=== PATIENT | female | born 1970 | race Hispanic/Latino ===

== ENCOUNTER 2017-06-05 17:33 | Emergency (ER) | payer SELFPAY ==
[~2017-06-05] VITALS: Ht 152.4 cm; Wt 61.4 kg
[~2017-06-05 17:33] MED LIST: ALPRAZOLAM0.25 MG OR; AMBIEN CR12.5 MG OR; AMBIEN10 MG OR; AMBIEN10 MG PO; AMBIEN5 MG PO; AMOX/K CLAV875 M1 PO; AMOXICILLIN500 MG OR; AMOXICILLIN500 MG PO; AMOXICILLIN875 MG OR; ANTIVERT OR; AUGMENTIN500TAB PO; AUGMENTIN875 MG OR; BACTRIM DS1 TAB OR; BACTRIM DS1 TAB PO; BACTROBAN2 % EX; BACTROBAN21 EX; BENTYL20 MG OR; CEPHALEXIN500 MG PO; CIPRO XR500 MG OR; CIPRO XR500 MG PO; CIPRO500 MG OR; CIPRODEX1 ML OT; CIPROFLOXACN500 MG PO; CYCLOBENZAPR10 MG OR; DIAZIDE OR; DOXYCYC MONO100 MG OR; ERY-TAB333 MG OR; FLEXERIL OR; FLONASE NASAL50 MCG; FLOXIN OTIC0.31 OT; GENTAK0.32 OS; GLIP/METFORM1 TA1 OR; IBUPROFEN800 MG PO; INVOKANA300 MG PO; KEFLEX500 MG PO; LANTUS100 MG/ML SC; LEVEMIR SC; LEVEMIR1000 UNITS SC; LEVOTHYROXIN50 MCG OR; LEXAPRO10 MG OR; LEXAPRO10 MG PO; LISINOPRIL2.5 MG PO; LORTAB 10 PO; LORTAB 5 OR; LORTAB5 PO; LOVASTATIN20 M1 PO; METFORMIN1000 MG PO; METOCLOPRAM10 MG OR; MUPIROCIN2 % EX; NAPROSYN500 MG OR; NAPROSYN500 MG PO; NOVOLIN 70/30 SC; NOVOLIN R SC; PERCOCET 5/325M1 TAB OR; PLAVIX75 MG OR; PREVACID30 M2 PO; ULTRAM50 M1 PO; ULTRAM50 MG OR; VICOPROFEN PO; XANAX0.25 MG OR; ZITHROMAX250 MG OR; ZOFRAN ODT4 MG OR; ZOFRAN ODT4 MG PO; ZYRTEC10 MG PO; [UNRECOGNIZED DRUG - REMARK]
[2017-06-05] MEDS ORDERED: BACTRIM DS1 TAB PO (18:00)
[2017-06-05 18:08] VITALS: BP 134/83
== END 2017-06-05 18:14 | disposition home or self-care (01) | DRG 158 ==
LOC: ED 17:33
DX: S01.531A Puncture wound without foreign body of lip, initial encounter (principal); K12.2 Cellulitis and abscess of mouth; R60.0 Localized edema

== ENCOUNTER 2017-06-07 17:58 | Emergency (ER) | payer SELFPAY ==
[~2017-06-07] VITALS: Ht 152.4 cm; Wt 51.0 kg
[2017-06-07 18:48] VITALS: BP 114/75
== END 2017-06-07 18:56 | disposition home or self-care (01) | DRG 138 ==
LOC: ED 17:58
PROC: 0C91XZZ Drainage of Lower Lip, External Approach (ICD-10-PCS; principal; 2017-06-07)
DX: K12.2 Cellulitis and abscess of mouth (principal)

== ENCOUNTER 2018-04-01 21:09 | Emergency (ER) | payer SELFPAY ==
[~2018-04-01] VITALS: Ht 152.4 cm; Wt 56.2 kg
[2018-04-01] MEDS ORDERED: CEPHALEXIN500 MG PO (22:00)
[2018-04-01] MEDS ORDERED: BACTRIM DS1 TAB PO (22:00)
[2018-04-01 22:14] VITALS: BP 115/75
== END 2018-04-01 22:15 | disposition home or self-care (01) | DRG 603 ==
LOC: ED 21:09
DX: L08.9 Local infection of the skin and subcutaneous tissue, unspecified (principal); E11.9 Type 2 diabetes mellitus without complications

== ENCOUNTER 2018-06-30 14:40 | Emergency (ER) | payer SELFPAY ==
[~2018-06-30] VITALS: Ht 152.4 cm; Wt 57.7 kg
[2018-06-30] MEDS ORDERED: CLINDAMYCIN300 M1 PO (14:59)
[2018-06-30 15:05] VITALS: BP 104/65
== END 2018-06-30 15:05 | disposition home or self-care (01) | DRG 603 ==
LOC: ED 14:40
DX: L03.213 Periorbital cellulitis (principal); H57.12 Ocular pain, left eye

== ENCOUNTER 2018-11-15 22:39 | Emergency (ER) | payer SELFPAY ==
[~2018-11-15] VITALS: Ht 152.4 cm; Wt 57.7 kg
[~2018-11-15 22:39] MED LIST changes: +CLINDAMYCIN300 M1 PO
[2018-11-15] MEDS ORDERED: BUSPIRONE5 MG PO (22:50)
[2018-11-15] MEDS ORDERED: DOXYCYCL HYC100 MG PO (23:07)
[2018-11-15 23:18] VITALS: BP 120/82
== END 2018-11-15 23:18 | disposition home or self-care (01) | DRG 761 ==
LOC: ED 22:39
DX: N90.7 Vulvar cyst (principal); E11.9 Type 2 diabetes mellitus without complications

== ENCOUNTER 2019-01-27 01:09 | Emergency (ER) | payer SELFPAY ==
[~2019-01-27] VITALS: Ht 152.4 cm; Wt 54.2 kg
[~2019-01-27 01:09] MED LIST changes: +BUSPIRONE5 MG PO; +DOXYCYCL HYC100 MG PO
[2019-01-27] MEDS ORDERED: PAXIL30 MG PO (01:20)
[2019-01-27] MEDS ORDERED: BACTROBAN21 EX (01:36)
[2019-01-27] MEDS ORDERED: VOLTAREN - GENE75 MG PO (01:36)
[2019-01-27 01:40] VITALS: BP 113/67
== END 2019-01-27 01:55 | disposition home or self-care (01) | DRG 607 ==
LOC: ED 01:09
DX: L98.8 Other specified disorders of the skin and subcutaneous tissue (principal)

== ENCOUNTER 2019-10-24 21:23 | Emergency (ER) | payer SELFPAY ==
[~2019-10-24] VITALS: Ht 152.4 cm; Wt 66.0 kg
[~2019-10-24 21:23] MED LIST changes: +PAXIL30 MG PO; +VOLTAREN - GENE75 MG PO
[2019-10-24] MEDS ORDERED: AUGMENTIN500TAB PO (22:33)
[2019-10-24] MEDS ORDERED: IBUPROFEN600 MG PO (22:33)
[2019-10-24 23:10] VITALS: BP 107/60
== END 2019-10-24 23:10 | disposition home or self-care (01) | DRG 603 ==
LOC: ED 21:23
DX: L02.811 Cutaneous abscess of head [any part, except face] (principal); E11.9 Type 2 diabetes mellitus without complications

== ENCOUNTER 2020-01-17 | Emergency (ER) | payer SELFPAY ==
[~2020-01-17] MED LIST changes: +IBUPROFEN600 MG PO
[2020-01-17] MEDS ORDERED: DOXYCYCL HYC100 MG PO (23:43)
[2020-05-05] MEDS ORDERED: BLOOD PRESSURE (10:01)
[2020-05-05] MEDS ORDERED: PRAVASTATIN PO (10:01)
== END 2020-01-18 00:37 | disposition home or self-care (01) | DRG 607 ==
DX: L73.2 Hidradenitis suppurativa (principal); H00.015 Hordeolum externum left lower eyelid; E11.9 Type 2 diabetes mellitus without complications; Z79.4 Long term (current) use of insulin

== ENCOUNTER 2021-09-14 07:11 | Emergency (ER) | payer SELFPAY ==
[~2021-09-14] VITALS: Ht 152.4 cm; Wt 56.8 kg
[~2021-09-14 07:11] MED LIST changes: +BLOOD PRESSURE; +PRAVASTATIN PO
[2021-09-14 08:00] LABS: URINE BILIRUBIN - DIPSTICK NEGATIVE (NEGATIVE); URINE BLOOD DIPSTICK SMALL (NEGATIVE); URINE COLOR YELLOW; URINE GLUCOSE - DIPSTICK >=1000 mg/dL (NEGATIVE); URINE KETONE TRACE mg/dL (NEGATIVE); URINE LEUK ESTERASE NEGATIVE (NEGATIVE); URINE PH 7.5 (4.5-8.0); URINE PROTEIN - DIPSTICK 100 mg/dL (NEG-TRACE); URINE UROBILINOGEN - DIPSTICK 0.2 E.U./dL (0.2)
[2021-09-14 08:02] LABS: HEMATOCRIT 39.2 % (37.0-47.0); HEMOGLOBIN 13.2 g/dl (12.0-16.0); IMMATURE GRANULOCYTES 0.7 % (0.0-5.0); MEAN CELL VOLUME 89.9 fL CALC (80.0-100.0); MEAN CORPUSCULAR HGB 30.3 pG CALC (26.0-32.0); MEAN CORPUSCULAR HGB CONC 33.7 g/dL CAL (32.0-36.0); NEUT# 6.82 thou/uL (2.00-7.15); RED BLOOD COUNT 4.36 mill/uL (4.20-5.60); RED CELL DISTRI WIDTH 12.8 % (11.5-15.5)
[2021-09-14 08:04] LABS: URINE NITRITE - DIPSTICK NEGATIVE (Negative)
[2021-09-14 08:10] LABS: URINE SQUAMOUS EPITHELIAL CELL FEW EPI/hpf (0-FEW); URINE WBC >100 WBC/hpf (0-5)
[2021-09-14 08:11] LABS: URINE BACTERIA FEW hpf; URINE RBC 0-2 RBC/hpf (0-5)
[2021-09-14 08:16] LABS: ALBUMIN 3.8 g/dL (3.2-5.0); AMYLASE 56 u/l (30-110); BILIRUBIN, TOTAL 0.7 mg/dL (0.0-1.4); BUN 17 mg/dL (7-17); BUN/CREATININE RATIO 20 (12-20 (CALC)); CREATININE 0.9 mg/dL (0.5-1.0); GFR > 60 ML/MIN (>=60 (CALC)); GFR FOR AFR.AMER. > 60 ML/MIN (>=60 (CALC)); LIPASE 27 u/l (23-300); POTASSIUM 3.9 mmol/l (3.5-5.1); SGOT/AST 20 u/l (14-36); SODIUM 135 mmol/l (137-146); TOTAL PROTEIN 7.7 g/dL (6.3-8.2)
[2021-09-14 08:33] LABS: ALKALINE PHOSPHATASE 103 u/l (38-126); ANION GAP 17 (6-22 (CALC)); CARBON DIOXIDE 39 mmol/l (22-30); CHLORIDE 83 mmol/l (95-108)
[2021-09-14] MEDS ORDERED: KEFLEX500 MG PO (09:40)
[2021-09-14] MEDS ORDERED: NAPROXEN500 MG PO (09:43)
[2021-09-14] MEDS ORDERED: ONDANSETRON4 MG PO (09:43)
[2021-09-14 10:32] VITALS: BP 109/74
== END 2021-09-14 10:31 | disposition home or self-care (01) | DRG 445 ==
LOC: ED 07:11
PROVIDERS: Emergency Medicine
DX: K80.20 Calculus of gallbladder without cholecystitis without obstruction (principal); N39.0 Urinary tract infection, site not specified; I10 Essential (primary) hypertension; E11.9 Type 2 diabetes mellitus without complications; B96.89 Other specified bacterial agents as the cause of diseases classified elsewhere; Z79.84 Long term (current) use of oral hypoglycemic drugs; Z79.4 Long term (current) use of insulin; Z87.442 Personal history of urinary calculi; Z20.822 Contact with and (suspected) exposure to COVID-19
CPT/HCPCS: Q9967

== ENCOUNTER 2021-10-02 16:08 | Emergency (ER) | payer SELFPAY ==
[~2021-10-02] VITALS: Ht 152.4 cm; Wt 48.0 kg
[~2021-10-02 16:08] MED LIST changes: +NAPROXEN500 MG PO; +ONDANSETRON4 MG PO
[2021-10-02 18:06] LABS: HEMATOCRIT 38.3 % (37.0-47.0); HEMOGLOBIN 13.4 g/dl (12.0-16.0); IMMATURE GRANULOCYTES 0.3 % (0.0-5.0); MEAN CELL VOLUME 88.2 fL CALC (80.0-100.0); MEAN CORPUSCULAR HGB 30.9 pG CALC (26.0-32.0); NEUT# 4.21 thou/uL (2.00-7.15); RED BLOOD COUNT 4.34 mill/uL (4.20-5.60)
[2021-10-02 18:16] LABS: ALBUMIN 3.6 g/dL (3.2-5.0); ALKALINE PHOSPHATASE 120 u/l (38-126); ANION GAP 8 (6-22 (CALC)); BILIRUBIN, TOTAL 0.6 mg/dL (0.0-1.4); BUN 11 mg/dL (7-17); BUN/CREATININE RATIO 18 (12-20 (CALC)); CARBON DIOXIDE 36 mmol/l (22-30); CHLORIDE 88 mmol/l (95-108); CREATININE 0.6 mg/dL (0.5-1.0); GFR > 60 ML/MIN (>=60 (CALC)); GFR FOR AFR.AMER. > 60 ML/MIN (>=60 (CALC)); POTASSIUM 3.4 mmol/l (3.5-5.1); SGOT/AST 18 u/l (14-36); SODIUM 130 mmol/l (137-146); TOTAL PROTEIN 7.2 g/dL (6.3-8.2)
[2021-10-02] MEDS ORDERED: VOLTAREN75 MG PO (21:26)
[2021-10-02 21:30] VITALS: BP 128/65
== END 2021-10-02 21:30 | disposition home or self-care (01) | DRG 552 ==
LOC: ED 16:08
PROVIDERS: Family Medicine
DX: M54.50 Low back pain, unspecified (principal); R55 Syncope and collapse; E07.9 Disorder of thyroid, unspecified; I10 Essential (primary) hypertension; E11.9 Type 2 diabetes mellitus without complications; Z79.84 Long term (current) use of oral hypoglycemic drugs; Z79.4 Long term (current) use of insulin
CPT/HCPCS: Q9967

== ENCOUNTER 2021-10-17 16:47 | Inpatient (IN) | payer SELFPAY ==
[~2021-10-17] VITALS: Ht 152.4 cm; Wt 62.0 kg
[~2021-10-17 16:47] MED LIST changes: +VOLTAREN75 MG PO
[2021-10-17 17:33] LABS: IMMATURE GRANULOCYTES 0.4 % (0.0-5.0); MEAN CELL VOLUME 85.6 fL CALC (80.0-100.0); MEAN CORPUSCULAR HGB 30.3 pG CALC (26.0-32.0); MEAN CORPUSCULAR HGB CONC 35.4 g/dL CAL (32.0-36.0); NEUT# 19.39 thou/uL (2.00-7.15); RED BLOOD COUNT 5.41 mill/uL (4.20-5.60); RED CELL DISTRI WIDTH 12.9 % (11.5-15.5)
[2021-10-17 17:34] LABS: HEMATOCRIT 46.3 % (37.0-47.0); HEMOGLOBIN 16.4 g/dl (12.0-16.0)
[2021-10-17 17:45] LABS: ALKALINE PHOSPHATASE 125 u/l (38-126); ANION GAP 24 (6-22 (CALC)); CARBON DIOXIDE 31 mmol/l (22-30); CHLORIDE 84 mmol/l (95-108); GFR 59 ML/MIN (>=60 (CALC)); GFR FOR AFR.AMER. > 60 ML/MIN (>=60 (CALC)); LIPASE 14 u/l (23-300); POTASSIUM 3.4 mmol/l (3.5-5.1); SODIUM 136 mmol/l (137-146)
[2021-10-17 17:53] LABS: ALBUMIN 4.5 g/dL (3.2-5.0); BILIRUBIN, TOTAL 1.3 mg/dL (0.0-1.4); BUN 39 mg/dL (7-17); BUN/CREATININE RATIO 39 (12-20 (CALC)); SGOT/AST 38 u/l (14-36)
[2021-10-17 22:00] VITALS: BP 95/72
[2021-10-17 23:00] VITALS: BP 94/63
[2021-10-18] VITALS (20 sets, daily range): BP systolic 61–151; BP diastolic 45–86
[2021-10-18 00:41] LABS: ANION GAP 10 (6-22 (CALC)); BUN 33 mg/dL (7-17); BUN/CREATININE RATIO 41 (12-20 (CALC)); CARBON DIOXIDE 33 mmol/l (22-30); CHLORIDE 98 mmol/l (95-108); CREATININE 0.8 mg/dL (0.5-1.0); GFR > 60 ML/MIN (>=60 (CALC)); GFR FOR AFR.AMER. > 60 ML/MIN (>=60 (CALC)); POTASSIUM 3.9 mmol/l (3.5-5.1); SODIUM 137 mmol/l (137-146)
[2021-10-18 04:32] LABS: ANION GAP 9 (6-22 (CALC)); BUN 32 mg/dL (7-17); BUN/CREATININE RATIO 46 (12-20 (CALC)); CARBON DIOXIDE 30 mmol/l (22-30); CHLORIDE 101 mmol/l (95-108); CREATININE 0.7 mg/dL (0.5-1.0); GFR > 60 ML/MIN (>=60 (CALC)); GFR FOR AFR.AMER. > 60 ML/MIN (>=60 (CALC)); POTASSIUM 3.2 mmol/l (3.5-5.1); SODIUM 137 mmol/l (137-146)
[2021-10-18 09:27] LABS: ANION GAP 7 (6-22 (CALC)); BUN 29 mg/dL (7-17); BUN/CREATININE RATIO 39 (12-20 (CALC)); CARBON DIOXIDE 31 mmol/l (22-30); CHLORIDE 104 mmol/l (95-108); CREATININE 0.7 mg/dL (0.5-1.0); GFR > 60 ML/MIN (>=60 (CALC)); GFR FOR AFR.AMER. > 60 ML/MIN (>=60 (CALC)); SODIUM 138 mmol/l (137-146)
[2021-10-18 14:37] LABS: IMMATURE GRANULOCYTES 0.1 % (0.0-5.0); MEAN CORPUSCULAR HGB 30.5 pG CALC (26.0-32.0); MEAN CORPUSCULAR HGB CONC 34.3 g/dL CAL (32.0-36.0); NEUT# 10.67 thou/uL (2.00-7.15); RED BLOOD COUNT 3.83 mill/uL (4.20-5.60); RED CELL DISTRI WIDTH 13.9 % (11.5-15.5)
[2021-10-18 14:39] LABS: HEMATOCRIT 34.1 % (37.0-47.0); HEMOGLOBIN 11.7 g/dl (12.0-16.0)
[2021-10-18] MEDS ORDERED: PRAVASTATIN10 MG PO (16:43)
[2021-10-19] VITALS: BP 124/86
[2021-10-19 00:26] LABS: URINE BILIRUBIN - DIPSTICK NEGATIVE (NEGATIVE); URINE BLOOD DIPSTICK SMALL (NEGATIVE); URINE COLOR YELLOW; URINE GLUCOSE - DIPSTICK >=1000 mg/dL (NEGATIVE); URINE KETONE 15 mg/dL (NEGATIVE); URINE PROTEIN - DIPSTICK TRACE mg/dL (NEG-TRACE); URINE SPECIFIC GRAVITY 1.015; URINE UROBILINOGEN - DIPSTICK 0.2 E.U./dL (0.2)
[2021-10-19 00:34] LABS: URINE LEUK ESTERASE SMALL (NEGATIVE); URINE NITRITE - DIPSTICK NEGATIVE (Negative)
[2021-10-19 00:54] LABS: URINE BACTERIA FEW hpf; URINE SQUAMOUS EPITHELIAL CELL FEW EPI/hpf (0-FEW); URINE WBC 50-100 WBC/hpf (0-5)
[2021-10-19 04:00] VITALS: BP 129/84
[2021-10-19 10:33] VITALS: BP 104/63
[2021-10-19 12:21] LABS: ANION GAP 4 (6-22 (CALC)); BUN 14 mg/dL (7-17); BUN/CREATININE RATIO 31 (12-20 (CALC)); CARBON DIOXIDE 31 mmol/l (22-30); CHLORIDE 106 mmol/l (95-108); CREATININE 0.5 mg/dL (0.5-1.0); GFR > 60 ML/MIN (>=60 (CALC)); GFR FOR AFR.AMER. > 60 ML/MIN (>=60 (CALC)); POTASSIUM 3.1 mmol/l (3.5-5.1); SODIUM 138 mmol/l (137-146)
[2021-10-19 14:21] VITALS: BP 112/62
[2021-10-19 19:53] VITALS: BP 118/68
[2021-10-20] VITALS (11 sets, daily range): BP systolic 107–140; BP diastolic 64–81
[2021-10-20 06:07] LABS: HEMATOCRIT 34.6 % (37.0-47.0); HEMOGLOBIN 11.6 g/dl (12.0-16.0); IMMATURE GRANULOCYTES 0.3 % (0.0-5.0); MEAN CELL VOLUME 90.3 fL CALC (80.0-100.0); MEAN CORPUSCULAR HGB 30.3 pG CALC (26.0-32.0); MEAN CORPUSCULAR HGB CONC 33.5 g/dL CAL (32.0-36.0); NEUT# 2.78 thou/uL (2.00-7.15); RED BLOOD COUNT 3.83 mill/uL (4.20-5.60); RED CELL DISTRI WIDTH 13.4 % (11.5-15.5)
[2021-10-20 06:26] LABS: ALKALINE PHOSPHATASE 112 u/l (38-126); ANION GAP 9 (6-22 (CALC)); BUN 8 mg/dL (7-17); BUN/CREATININE RATIO 15 (12-20 (CALC)); CARBON DIOXIDE 25 mmol/l (22-30); CHLORIDE 109 mmol/l (95-108); CREATININE 0.5 mg/dL (0.5-1.0); GFR > 60 ML/MIN (>=60 (CALC)); GFR FOR AFR.AMER. > 60 ML/MIN (>=60 (CALC)); POTASSIUM 3.5 mmol/l (3.5-5.1); SGOT/AST 33 u/l (14-36); SODIUM 140 mmol/l (137-146)
[2021-10-20 06:32] LABS: ALBUMIN 2.5 g/dL (3.2-5.0); BILIRUBIN, TOTAL 0.6 mg/dL (0.0-1.4); TOTAL PROTEIN 5.3 g/dL (6.3-8.2)
[2021-10-20 10:30] LABS: HEMATOCRIT 34.3 % (37.0-47.0); HEMOGLOBIN 11.4 g/dl (12.0-16.0)
[2021-10-21] VITALS: BP 149/87
[2021-10-21 04:00] VITALS: BP 140/73
[2021-10-21 05:31] LABS: HEMATOCRIT 36.2 % (37.0-47.0); HEMOGLOBIN 12.3 g/dl (12.0-16.0); IMMATURE GRANULOCYTES 0.1 % (0.0-5.0); MEAN CELL VOLUME 89.2 fL CALC (80.0-100.0); MEAN CORPUSCULAR HGB 30.3 pG CALC (26.0-32.0); NEUT# 4.96 thou/uL (2.00-7.15); RED BLOOD COUNT 4.06 mill/uL (4.20-5.60); RED CELL DISTRI WIDTH 13.4 % (11.5-15.5)
[2021-10-21 05:51] LABS: ALBUMIN 2.4 g/dL (3.2-5.0); BILIRUBIN, TOTAL 0.8 mg/dL (0.0-1.4); TOTAL PROTEIN 5.1 g/dL (6.3-8.2)
[2021-10-21 08:00] VITALS: BP 125/71
[2021-10-21] MEDS ORDERED: PERCOCET 5/325M1 TAB PO ×2 (08:50→08:51)
[2021-10-21 10:37] VITALS: BP 147/78
[2021-10-21 12:14] LABS: ANION GAP 11 (6-22 (CALC)); BUN 5 mg/dL (7-17); BUN/CREATININE RATIO 10 (12-20 (CALC)); CARBON DIOXIDE 23 mmol/l (22-30); CHLORIDE 104 mmol/l (95-108); CREATININE 0.5 mg/dL (0.5-1.0); GFR > 60 ML/MIN (>=60 (CALC)); GFR FOR AFR.AMER. > 60 ML/MIN (>=60 (CALC)); POTASSIUM 3.3 mmol/l (3.5-5.1); SODIUM 135 mmol/l (137-146)
== END 2021-10-21 14:26 | disposition home or self-care (01) | DRG 417 ==
LOC: ED 16:47 → ED-I 17:29 → ED 17:29 → ED-I 18:41 → ED 20:12 → MS2 20:13 → ICU 20:13 → MS2 10-18 18:12
PROVIDERS: Family Medicine; Nurse Practitioner; Surgery; ADMIT Hospitalist; ATTEND Hospitalist
PROC: 0FT44ZZ Resection of Gallbladder, Percutaneous Endoscopic Approach (ICD-10-PCS; principal; 2021-10-20)
PROC: BF001ZZ Plain Radiography of Bile Ducts using Low Osmolar Contrast (ICD-10-PCS; 2021-10-20)
DX: K80.00 Calculus of gallbladder with acute cholecystitis without obstruction (principal); E11.10 Type 2 diabetes mellitus with ketoacidosis without coma; E87.6 Hypokalemia; I10 Essential (primary) hypertension; E78.5 Hyperlipidemia, unspecified; Z79.4 Long term (current) use of insulin; Z79.84 Long term (current) use of oral hypoglycemic drugs; Z20.822 Contact with and (suspected) exposure to COVID-19
CPT/HCPCS: J0131; J1610; Q9967

== ENCOUNTER 2021-10-27 20:29 | Emergency (ER) | payer SELFPAY ==
[~2021-10-27] VITALS: Ht 152.4 cm; Wt 59.1 kg
[~2021-10-27 20:29] MED LIST changes: +PERCOCET 5/325M1 TAB PO; +PRAVASTATIN10 MG PO
[2021-10-27 23:03] LABS: HEMATOCRIT 40.5 % (37.0-47.0); HEMOGLOBIN 13.6 g/dl (12.0-16.0); IMMATURE GRANULOCYTES 0.5 % (0.0-5.0); MEAN CELL VOLUME 90.4 fL CALC (80.0-100.0); MEAN CORPUSCULAR HGB 30.4 pG CALC (26.0-32.0); MEAN CORPUSCULAR HGB CONC 33.6 g/dL CAL (32.0-36.0); NEUT# 9.23 thou/uL (2.00-7.15); RED BLOOD COUNT 4.48 mill/uL (4.20-5.60); RED CELL DISTRI WIDTH 13.4 % (11.5-15.5)
[2021-10-27 23:25] LABS: ALKALINE PHOSPHATASE 125 u/l (38-126); AMYLASE 74 u/l (30-110); BILIRUBIN, TOTAL 0.7 mg/dL (0.0-1.4); BUN 13 mg/dL (7-17); BUN/CREATININE RATIO 18 (12-20 (CALC)); CHLORIDE 96 mmol/l (95-108); CREATININE 0.7 mg/dL (0.5-1.0); GFR > 60 ML/MIN (>=60 (CALC)); GFR FOR AFR.AMER. > 60 ML/MIN (>=60 (CALC)); LIPASE 34 u/l (23-300); SODIUM 136 mmol/l (137-146)
[2021-10-27 23:28] LABS: URINE BILIRUBIN - DIPSTICK NEGATIVE (NEGATIVE); URINE BLOOD DIPSTICK SMALL (NEGATIVE); URINE COLOR YELLOW; URINE GLUCOSE - DIPSTICK >=1000 mg/dL (NEGATIVE); URINE KETONE NEGATIVE (NEGATIVE); URINE LEUK ESTERASE TRACE (NEGATIVE); URINE PROTEIN - DIPSTICK 100 mg/dL (NEG-TRACE); URINE SPECIFIC GRAVITY 1.015
[2021-10-27 23:31] LABS: ALBUMIN 3.6 g/dL (3.2-5.0); ANION GAP 10 (6-22 (CALC)); CARBON DIOXIDE 35 mmol/l (22-30); POTASSIUM 4.8 mmol/l (3.5-5.1); SGOT/AST 21 u/l (14-36); TOTAL PROTEIN 7.2 g/dL (6.3-8.2)
[2021-10-27 23:35] LABS: URINE BACTERIA MANY hpf; URINE NITRITE - DIPSTICK POSITIVE (Negative); URINE SQUAMOUS EPITHELIAL CELL FEW EPI/hpf (0-FEW); URINE WBC 50-100 WBC/hpf (0-5)
[2021-10-27 23:36] LABS: URINE MUCUS FEW hpf (NONE-FEW)
[2021-10-28] MEDS ORDERED: TORADOL PO (00:13)
[2021-10-28] MEDS ORDERED: PROMETHAZINE HY25 M1 PO (00:13)
[2021-10-28 01:00] VITALS: BP 110/65
== END 2021-10-28 01:00 | disposition home or self-care (01) | DRG 392 ==
LOC: ED 20:29
PROVIDERS: Family Medicine
DX: R10.11 Right upper quadrant pain (principal); R10.13 Epigastric pain; R11.2 Nausea with vomiting, unspecified; E11.9 Type 2 diabetes mellitus without complications; I10 Essential (primary) hypertension; Z79.84 Long term (current) use of oral hypoglycemic drugs; Z90.49 Acquired absence of other specified parts of digestive tract; R82.71 Bacteriuria
CPT/HCPCS: Q9967

== ENCOUNTER 2021-11-18 18:57 | Emergency (ER) | payer OTHER ==
[~2021-11-18] VITALS: Ht 152.4 cm; Wt 46.4 kg
[~2021-11-18 18:57] MED LIST changes: +PROMETHAZINE HY25 M1 PO; +TORADOL PO
[2021-11-18 23:15] LABS: HEMATOCRIT 33.6 % (37.0-47.0); HEMOGLOBIN 11.4 g/dl (12.0-16.0); IMMATURE GRANULOCYTES 0.2 % (0.0-5.0); MEAN CELL VOLUME 89.1 fL CALC (80.0-100.0); MEAN CORPUSCULAR HGB 30.2 pG CALC (26.0-32.0); MEAN CORPUSCULAR HGB CONC 33.9 g/dL CAL (32.0-36.0); NEUT# 5.48 thou/uL (2.00-7.15); RED BLOOD COUNT 3.77 mill/uL (4.20-5.60); RED CELL DISTRI WIDTH 13.8 % (11.5-15.5)
[2021-11-18 23:39] LABS: ALBUMIN 2.9 g/dL (3.2-5.0); ALKALINE PHOSPHATASE 75 u/l (38-126); AMYLASE 51 u/l (30-110); BILIRUBIN, TOTAL 0.5 mg/dL (0.0-1.4); BUN 23 mg/dL (7-17); BUN/CREATININE RATIO 34 (12-20 (CALC)); CARBON DIOXIDE 33 mmol/l (22-30); CHLORIDE 98 mmol/l (95-108); CREATININE 0.7 mg/dL (0.5-1.0); GFR > 60 ML/MIN (>=60 (CALC)); GFR FOR AFR.AMER. > 60 ML/MIN (>=60 (CALC)); LIPASE 27 u/l (23-300); SGOT/AST 21 u/l (14-36); SODIUM 135 mmol/l (137-146)
[2021-11-18 23:42] LABS: ANION GAP 7 (6-22 (CALC)); POTASSIUM 3.4 mmol/l (3.5-5.1)
[2021-11-19] MEDS ORDERED: ZOFRAN4 MG/TAB PO (05:29)
[2021-11-19] MEDS ORDERED: VISTARIL 50MG C50 M1 PO (05:29)
[2021-11-19] MEDS ORDERED: TORADOL PO (05:29)
[2021-11-19 05:40] VITALS: BP 118/75
== END 2021-11-19 05:40 | disposition home or self-care (01) | DRG 392 ==
LOC: ED 18:57
PROVIDERS: Emergency Medicine
DX: R10.84 Generalized abdominal pain (principal); N83.201 Unspecified ovarian cyst, right side; I10 Essential (primary) hypertension; E11.9 Type 2 diabetes mellitus without complications; Z79.84 Long term (current) use of oral hypoglycemic drugs; Z90.49 Acquired absence of other specified parts of digestive tract
CPT/HCPCS: Q9967

== ENCOUNTER 2022-01-06 17:49 | Emergency (ER) | payer OTHER ==
[~2022-01-06 17:49] MED LIST changes: +VISTARIL 50MG C50 M1 PO; +ZOFRAN4 MG/TAB PO
== END 2022-01-06 18:50 | disposition left against medical advice (07) | DRG 951 ==
LOC: ED 17:49 → LWOBS 18:50
DX: Z53.21 Procedure and treatment not carried out due to patient leaving prior to being seen by health care provider (principal)

== ENCOUNTER 2022-02-24 19:46 | Emergency (ER) | payer OTHER ==
[~2022-02-24] VITALS: Ht 152.4 cm; Wt 49.0 kg
[2022-02-24] VITALS (7 sets, daily range): BP systolic 92–177; BP diastolic 64–103
[~2022-02-24 19:46] MED LIST changes: +ALPRAZOLAM PO; +CHOLESTYRAM PO; +CHOLESTYRAMINE4 G1 PO; +LANTUS; +LOVASTATIN
[2022-02-24] MEDS ORDERED: BACLOFEN10 MG PO (20:24)
[2022-02-24] MEDS ORDERED: HYDROCHLOROT25 MG PO (20:25)
[2022-02-24] MEDS ORDERED: PAROXETINE20 MG PO (20:26)
[2022-02-24] MEDS ORDERED: PROMETHAZINE25 M1 RE (20:27)
[2022-02-24] MEDS ORDERED: PREGABALIN50 MG PO (20:27)
[2022-02-24 20:48] LABS: IMMATURE GRANULOCYTES 0.7 % (0.0-5.0); MEAN CORPUSCULAR HGB 30.1 pG CALC (26.0-32.0); MEAN CORPUSCULAR HGB CONC 33.8 g/dL CAL (32.0-36.0); NEUT# 5.06 thou/uL (2.00-7.15); RED BLOOD COUNT 4.62 mill/uL (4.20-5.60); RED CELL DISTRI WIDTH 13.4 % (11.5-15.5)
[2022-02-24 20:49] LABS: HEMATOCRIT 41.1 % (37.0-47.0); HEMOGLOBIN 13.9 g/dl (12.0-16.0)
[2022-02-24 21:06] LABS: ALKALINE PHOSPHATASE 104 u/l (38-126); AMYLASE 63 u/l (30-110); BILIRUBIN, TOTAL 0.7 mg/dL (0.0-1.4); BUN 20 mg/dL (7-17); BUN/CREATININE RATIO 30 (12-20 (CALC)); CHLORIDE 97 mmol/l (95-108); CREATININE 0.7 mg/dL (0.5-1.0); GFR > 60 ML/MIN (>=60 (CALC)); GFR FOR AFR.AMER. > 60 ML/MIN (>=60 (CALC)); LIPASE 84 u/l (23-300); SGOT/AST 18 u/l (14-36); SODIUM 132 mmol/l (137-146)
[2022-02-24 21:08] LABS: ALBUMIN 3.6 g/dL (3.2-5.0); ANION GAP 13 (6-22 (CALC)); CARBON DIOXIDE 26 mmol/l (22-30)
[2022-02-25] MEDS ORDERED: ONDANSETRON4 MG PO (00:56)
[2022-02-25] MEDS ORDERED: MIRALAX17 GM PO (00:56)
[2022-02-25 01:19] VITALS: BP 92/64
== END 2022-02-25 01:22 | disposition home or self-care (01) | DRG 392 ==
LOC: ED 19:46
PROVIDERS: Emergency Medicine
DX: R11.10 Vomiting, unspecified (principal); K59.00 Constipation, unspecified; E11.9 Type 2 diabetes mellitus without complications; I10 Essential (primary) hypertension; Z90.49 Acquired absence of other specified parts of digestive tract; Z79.84 Long term (current) use of oral hypoglycemic drugs; Z79.4 Long term (current) use of insulin; Z96.89 Presence of other specified functional implants
CPT/HCPCS: Q9967; S0164

== ENCOUNTER 2022-03-02 22:47 | Emergency (ER) | payer OTHER ==
[~2022-03-02] VITALS: Ht 152.4 cm; Wt 47.0 kg
[~2022-03-02 22:47] MED LIST changes: +BACLOFEN10 MG PO; +HYDROCHLOROT25 MG PO; +MIRALAX17 GM PO; +PAROXETINE20 MG PO; +PREGABALIN50 MG PO; +PROMETHAZINE25 M1 RE
[2022-03-02 23:07] VITALS: BP 141/94
[2022-03-02 23:30] VITALS: BP 153/97
[2022-03-02 23:34] LABS: HEMATOCRIT 46.1 % (37.0-47.0); HEMOGLOBIN 15.8 g/dl (12.0-16.0); IMMATURE GRANULOCYTES 0.5 % (0.0-5.0); MEAN CELL VOLUME 88.5 fL CALC (80.0-100.0); MEAN CORPUSCULAR HGB 30.3 pG CALC (26.0-32.0); MEAN CORPUSCULAR HGB CONC 34.3 g/dL CAL (32.0-36.0); NEUT# 4.78 thou/uL (2.00-7.15); RED BLOOD COUNT 5.21 mill/uL (4.20-5.60); RED CELL DISTRI WIDTH 12.9 % (11.5-15.5)
[2022-03-02 23:52] LABS: ALBUMIN 4.3 g/dL (3.2-5.0); ALKALINE PHOSPHATASE 151 u/l (38-126); AMYLASE 87 u/l (30-110); BILIRUBIN, TOTAL 0.7 mg/dL (0.0-1.4); BUN 15 mg/dL (7-17); BUN/CREATININE RATIO 23 (12-20 (CALC)); CHLORIDE 97 mmol/l (95-108); CREATININE 0.6 mg/dL (0.5-1.0); GFR > 60 ML/MIN (>=60 (CALC)); GFR FOR AFR.AMER. > 60 ML/MIN (>=60 (CALC)); LIPASE 54 u/l (23-300); POTASSIUM 3.8 mmol/l (3.5-5.1)
[2022-03-02 23:58] LABS: ANION GAP 11 (6-22 (CALC)); CARBON DIOXIDE 37 mmol/l (22-30); SGOT/AST 39 u/l (14-36); SODIUM 141 mmol/l (137-146); TOTAL PROTEIN 8.7 g/dL (6.3-8.2)
[2022-03-03 00:30] VITALS: BP 148/92
[2022-03-03 01:00] VITALS: BP 153/96
[2022-03-03 01:13] LABS: URINE BILIRUBIN - DIPSTICK NEGATIVE (NEGATIVE); URINE BLOOD DIPSTICK SMALL (NEGATIVE); URINE COLOR YELLOW; URINE GLUCOSE - DIPSTICK >=1000 mg/dL (NEGATIVE); URINE KETONE NEGATIVE (NEGATIVE); URINE LEUK ESTERASE SMALL (NEGATIVE); URINE NITRITE - DIPSTICK NEGATIVE (Negative); URINE PROTEIN - DIPSTICK 100 mg/dL (NEG-TRACE); URINE SPECIFIC GRAVITY 1.015; URINE UROBILINOGEN - DIPSTICK 0.2 E.U./dL (0.2)
[2022-03-03 01:16] LABS: URINE BACTERIA FEW hpf; URINE SQUAMOUS EPITHELIAL CELL FEW EPI/hpf (0-FEW); URINE WBC 20-50 WBC/hpf (0-5)
[2022-03-03] MEDS ORDERED: PHENERGAN25 MG RE (01:24)
[2022-03-03] MEDS ORDERED: PEPCID40 MG PO (01:24)
[2022-03-03 01:50] VITALS: BP 145/87
[2022-03-03 02:00] VITALS: BP 140/85
[2022-03-03 02:06] VITALS: BP 140/85
== END 2022-03-03 02:07 | disposition home or self-care (01) | DRG 392 ==
LOC: ED 22:47
PROVIDERS: Family Medicine
DX: R11.2 Nausea with vomiting, unspecified (principal); R10.13 Epigastric pain; I10 Essential (primary) hypertension; E11.9 Type 2 diabetes mellitus without complications; Z79.84 Long term (current) use of oral hypoglycemic drugs; Z96.89 Presence of other specified functional implants
CPT/HCPCS: Q9967; S0164

== ENCOUNTER 2022-03-27 17:27 | Emergency (ER) | payer OTHER ==
[~2022-03-27] VITALS: Ht 152.4 cm; Wt 53.0 kg
[~2022-03-27 17:27] MED LIST changes: +LORTAB 1010 MG PO; +PAROXETINE10 MG PO; -PAROXETINE20 MG PO; +PEPCID40 MG PO; +PHENERGAN25 MG RE
[2022-03-27 18:01] LABS: HEMOGLOBIN 14.4 g/dl (12.0-16.0); IMMATURE GRANULOCYTES 0.6 % (0.0-5.0); MEAN CELL VOLUME 88.8 fL CALC (80.0-100.0); MEAN CORPUSCULAR HGB 30.4 pG CALC (26.0-32.0); MEAN CORPUSCULAR HGB CONC 34.3 g/dL CAL (32.0-36.0); NEUT# 4.82 thou/uL (2.00-7.15); RED BLOOD COUNT 4.73 mill/uL (4.20-5.60); RED CELL DISTRI WIDTH 13.2 % (11.5-15.5)
[2022-03-27 18:26] LABS: ALKALINE PHOSPHATASE 258 u/l (38-126); BUN 28 mg/dL (7-17); BUN/CREATININE RATIO 31 (12-20 (CALC)); CHLORIDE 96 mmol/l (95-108); CREATININE 0.9 mg/dL (0.5-1.0); GFR > 60 ML/MIN (>=60 (CALC)); GFR FOR AFR.AMER. > 60 ML/MIN (>=60 (CALC)); LIPASE 29 u/l (23-300); POTASSIUM 3.6 mmol/l (3.5-5.1); SGOT/AST 24 u/l (14-36); SODIUM 136 mmol/l (137-146); TOTAL PROTEIN 8.1 g/dL (6.3-8.2)
[2022-03-27 18:27] LABS: ANION GAP 18 (6-22 (CALC)); BILIRUBIN, TOTAL 0.9 mg/dL (0.0-1.4); CARBON DIOXIDE 26 mmol/l (22-30)
[2022-03-27] MEDS ORDERED: DICYCLOMINE HYD10 MG PO (20:03)
[2022-03-27] MEDS ORDERED: TRAMADOL HCL50 MG PO (20:03)
[2022-03-27] MEDS ORDERED: ONDANSETRON4 MG PO (20:03)
[2022-03-27] MEDS ORDERED: PROTONIX40 M2 PO (20:03)
[2022-03-27 20:15] LABS: URINE BILIRUBIN - DIPSTICK NEGATIVE (NEGATIVE); URINE BLOOD DIPSTICK MODERATE (NEGATIVE); URINE COLOR YELLOW; URINE GLUCOSE - DIPSTICK >=1000 mg/dL (NEGATIVE); URINE KETONE NEGATIVE (NEGATIVE); URINE PH 5.5 (4.5-8.0); URINE PROTEIN - DIPSTICK 100 mg/dL (NEG-TRACE); URINE UROBILINOGEN - DIPSTICK 0.2 E.U./dL (0.2)
[2022-03-27 20:17] LABS: URINE LEUK ESTERASE SMALL (NEGATIVE); URINE NITRITE - DIPSTICK NEGATIVE (Negative)
[2022-03-27 20:26] LABS: URINE MUCUS MODERATE hpf (NONE-FEW); URINE SQUAMOUS EPITHELIAL CELL FEW EPI/hpf (0-FEW); URINE WBC 50-100 WBC/hpf (0-5)
[2022-03-27 20:42] VITALS: BP 102/77
== END 2022-03-27 20:57 | disposition home or self-care (01) | DRG 392 ==
LOC: ED 17:27
PROVIDERS: Family Medicine; Nurse Practitioner
DX: R10.11 Right upper quadrant pain (principal); R10.31 Right lower quadrant pain; G89.29 Other chronic pain; R11.2 Nausea with vomiting, unspecified; I10 Essential (primary) hypertension; E11.9 Type 2 diabetes mellitus without complications; Z90.49 Acquired absence of other specified parts of digestive tract; Z96.89 Presence of other specified functional implants; Z79.4 Long term (current) use of insulin; Z79.84 Long term (current) use of oral hypoglycemic drugs
CPT/HCPCS: Q9967; S0164

== ENCOUNTER 2022-04-01 20:34 | Emergency (ER) | payer OTHER ==
[~2022-04-01] VITALS: Ht 152.4 cm; Wt 46.6 kg
[2022-04-01] VITALS (8 sets, daily range): BP systolic 139–164; BP diastolic 78–117
[~2022-04-01 20:34] MED LIST changes: +DICYCLOMINE HYD10 MG PO; +PROTONIX40 M2 PO; +TRAMADOL HCL50 MG PO
[2022-04-01 21:35] LABS: URINE BILIRUBIN - DIPSTICK NEGATIVE (NEGATIVE); URINE BLOOD DIPSTICK SMALL (NEGATIVE); URINE COLOR YELLOW; URINE GLUCOSE - DIPSTICK >=1000 mg/dL (NEGATIVE); URINE KETONE TRACE mg/dL (NEGATIVE); URINE LEUK ESTERASE TRACE (NEGATIVE); URINE PROTEIN - DIPSTICK 100 mg/dL (NEG-TRACE); URINE UROBILINOGEN - DIPSTICK 0.2 E.U./dL (0.2)
[2022-04-01 21:36] LABS: HEMATOCRIT 41.4 % (37.0-47.0); HEMOGLOBIN 14.1 g/dl (12.0-16.0); IMMATURE GRANULOCYTES 0.2 % (0.0-5.0); MEAN CELL VOLUME 88.8 fL CALC (80.0-100.0); MEAN CORPUSCULAR HGB 30.3 pG CALC (26.0-32.0); MEAN CORPUSCULAR HGB CONC 34.1 g/dL CAL (32.0-36.0); NEUT# 4.25 thou/uL (2.00-7.15); RED BLOOD COUNT 4.66 mill/uL (4.20-5.60); RED CELL DISTRI WIDTH 12.8 % (11.5-15.5)
[2022-04-01 21:36] LABS: URINE NITRITE - DIPSTICK POSITIVE (Negative)
[2022-04-01 21:41] LABS: URINE SQUAMOUS EPITHELIAL CELL MANY EPI/hpf (0-FEW); URINE WBC 20-50 WBC/hpf (0-5)
[2022-04-01 21:42] LABS: URINE BACTERIA FEW hpf
[2022-04-01 21:52] LABS: ALBUMIN 3.9 g/dL (3.2-5.0); ALKALINE PHOSPHATASE 197 u/l (38-126); AMYLASE 107 u/l (30-110); ANION GAP 14 (6-22 (CALC)); BILIRUBIN, TOTAL 0.8 mg/dL (0.0-1.4); BUN 17 mg/dL (7-17); BUN/CREATININE RATIO 19 (12-20 (CALC)); CARBON DIOXIDE 33 mmol/l (22-30); CHLORIDE 94 mmol/l (95-108); CREATININE 0.9 mg/dL (0.5-1.0); GFR > 60 ML/MIN (>=60 (CALC)); GFR FOR AFR.AMER. > 60 ML/MIN (>=60 (CALC)); LIPASE 32 u/l (23-300); POTASSIUM 2.6 mmol/l (3.5-5.1); SGOT/AST 19 u/l (14-36); SODIUM 138 mmol/l (137-146); TOTAL PROTEIN 7.3 g/dL (6.3-8.2)
[2022-04-01] MEDS ORDERED: PHENERGAN25 MG RE (23:21)
[2022-04-01] MEDS ORDERED: KEFLEX500 MG PO (23:21)
[2022-04-01] MEDS ORDERED: POTASSIUM CHLO20 ME1 PO (23:21)
[2022-04-02] VITALS: BP 133/83
[2022-04-02 00:15] VITALS: BP 133/81
[2022-04-02 00:30] VITALS: BP 147/87
[2022-04-02 00:45] VITALS: BP 133/104
[2022-04-02 00:55] VITALS: BP 133/104
[2022-04-02] MEDS ORDERED: POTASSIUM CHLO20 ME1 PO (00:59)
[2022-04-02] MEDS ORDERED: PHENERGAN25 MG RE (00:59)
[2022-04-02] MEDS ORDERED: CIPROFLOXACN500 MG PO (12:15)
[2022-04-02] MEDS ORDERED: ZOFRAN4 MG/TAB PO (12:19)
[2022-04-02] MEDS ORDERED: CARAFATE1 GM PO (12:20)
[2022-04-02] MEDS ORDERED: PROMETHAZINE HY25 M1 PO (12:20)
[2022-04-02] MEDS ORDERED: OMEPRAZOLE DR40 MG PO (12:21)
[2022-04-02] MEDS ORDERED: FAMOTIDINE20 M1 PO (12:22)
== END 2022-04-02 00:55 | disposition home or self-care (01) | DRG 392 ==
LOC: ED 20:34
PROVIDERS: Family Medicine
DX: R10.13 Epigastric pain (principal); R10.11 Right upper quadrant pain; R11.2 Nausea with vomiting, unspecified; N39.0 Urinary tract infection, site not specified; E87.6 Hypokalemia; I10 Essential (primary) hypertension; E11.9 Type 2 diabetes mellitus without complications; Z79.84 Long term (current) use of oral hypoglycemic drugs; Z90.49 Acquired absence of other specified parts of digestive tract; Z79.4 Long term (current) use of insulin; Z96.89 Presence of other specified functional implants
CPT/HCPCS: Q9967

== ENCOUNTER 2022-04-02 09:42 | Observation (INO) | payer OTHER ==
[~2022-04-02] VITALS: Ht 152.4 cm; Wt 48.0 kg
[2022-04-02] VITALS (12 sets, daily range): BP systolic 106–156; BP diastolic 66–94
[~2022-04-02 09:42] MED LIST changes: +POTASSIUM CHLO20 ME1 PO
[2022-04-02 10:28] LABS: HEMATOCRIT 44.4 % (37.0-47.0); IMMATURE GRANULOCYTES 0.3 % (0.0-5.0); MEAN CELL VOLUME 89.2 fL CALC (80.0-100.0); MEAN CORPUSCULAR HGB 30.1 pG CALC (26.0-32.0); MEAN CORPUSCULAR HGB CONC 33.8 g/dL CAL (32.0-36.0); NEUT# 3.45 thou/uL (2.00-7.15); RED BLOOD COUNT 4.98 mill/uL (4.20-5.60); RED CELL DISTRI WIDTH 12.8 % (11.5-15.5)
[2022-04-02 10:38] LABS: ALBUMIN 4.1 g/dL (3.2-5.0); ALKALINE PHOSPHATASE 196 u/l (38-126); AMYLASE 90 u/l (30-110); ANION GAP 13 (6-22 (CALC)); BILIRUBIN, TOTAL 0.8 mg/dL (0.0-1.4); BUN 15 mg/dL (7-17); BUN/CREATININE RATIO 21 (12-20 (CALC)); CARBON DIOXIDE 33 mmol/l (22-30); CHLORIDE 99 mmol/l (95-108); CREATININE 0.7 mg/dL (0.5-1.0); GFR > 60 ML/MIN (>=60 (CALC)); GFR FOR AFR.AMER. > 60 ML/MIN (>=60 (CALC)); LIPASE 32 u/l (23-300); POTASSIUM 2.7 mmol/l (3.5-5.1); SGOT/AST 21 u/l (14-36); SODIUM 142 mmol/l (137-146); TOTAL PROTEIN 7.9 g/dL (6.3-8.2)
[2022-04-02 10:40] LABS: MAGNESIUM 1.5 mg/dL (1.6-2.3)
[2022-04-02 11:05] LABS: URINE BILIRUBIN - DIPSTICK NEGATIVE (NEGATIVE); URINE BLOOD DIPSTICK SMALL (NEGATIVE); URINE COLOR YELLOW; URINE GLUCOSE - DIPSTICK 500 mg/dL (NEGATIVE); URINE KETONE 15 mg/dL (NEGATIVE); URINE LEUK ESTERASE NEGATIVE (NEGATIVE); URINE PROTEIN - DIPSTICK 100 mg/dL (NEG-TRACE); URINE SPECIFIC GRAVITY >=1.030; URINE UROBILINOGEN - DIPSTICK 0.2 E.U./dL (0.2)
[2022-04-02 11:07] LABS: URINE NITRITE - DIPSTICK NEGATIVE (Negative)
[2022-04-02 11:21] LABS: URINE SQUAMOUS EPITHELIAL CELL FEW EPI/hpf (0-FEW); URINE WBC 0-2 WBC/hpf (0-5)
[2022-04-02] MEDS ORDERED: CIPROFLOXACN500 MG PO (12:15)
[2022-04-02] MEDS ORDERED: ZOFRAN4 MG/TAB PO (12:19)
[2022-04-02] MEDS ORDERED: CARAFATE1 GM PO (12:20)
[2022-04-02] MEDS ORDERED: PROMETHAZINE HY25 M1 PO (12:20)
[2022-04-02] MEDS ORDERED: OMEPRAZOLE DR40 MG PO (12:21)
[2022-04-02] MEDS ORDERED: FAMOTIDINE20 M1 PO (12:22)
[2022-04-03 00:04] VITALS: BP 108/59
[2022-04-03 04:29] VITALS: BP 123/80
[2022-04-03 05:31] LABS: MEAN CELL VOLUME 90.6 fL CALC (80.0-100.0); MEAN CORPUSCULAR HGB CONC 33.1 g/dL CAL (32.0-36.0); RED BLOOD COUNT 4.04 mill/uL (4.20-5.60); RED CELL DISTRI WIDTH 12.9 % (11.5-15.5)
[2022-04-03 05:59] LABS: HEMATOCRIT 36.6 % (37.0-47.0); HEMOGLOBIN 12.1 g/dl (12.0-16.0)
[2022-04-03 06:01] LABS: ALKALINE PHOSPHATASE 141 u/l (38-126); BILIRUBIN, TOTAL 0.6 mg/dL (0.0-1.4); BUN 11 mg/dL (7-17); BUN/CREATININE RATIO 21 (12-20 (CALC)); CARBON DIOXIDE 29 mmol/l (22-30); CHLORIDE 103 mmol/l (95-108); CREATININE 0.5 mg/dL (0.5-1.0); GFR > 60 ML/MIN (>=60 (CALC)); GFR FOR AFR.AMER. > 60 ML/MIN (>=60 (CALC)); SGOT/AST 23 u/l (14-36); SODIUM 141 mmol/l (137-146)
[2022-04-03 06:03] LABS: ANION GAP 12 (6-22 (CALC)); MAGNESIUM 1.9 mg/dL (1.6-2.3); TOTAL PROTEIN 5.8 g/dL (6.3-8.2)
[2022-04-03 07:12] VITALS: BP 152/90
[2022-04-03 10:22] VITALS: BP 146/88
[2022-04-03 19:16] VITALS: BP 111/67
== END 2022-04-03 22:47 | disposition short-term general hospital (02) | DRG 392 ==
LOC: ED 09:42 → ED-I 11:45 → ED 12:11 → MS2 12:12
PROVIDERS: ADMIT Internal Medicine; ATTEND Internal Medicine
DX: R11.2 Nausea with vomiting, unspecified (principal); R10.11 Right upper quadrant pain; E87.6 Hypokalemia; E83.42 Hypomagnesemia; E11.65 Type 2 diabetes mellitus with hyperglycemia; I10 Essential (primary) hypertension; F41.9 Anxiety disorder, unspecified; Z90.49 Acquired absence of other specified parts of digestive tract; Z96.89 Presence of other specified functional implants; Z79.84 Long term (current) use of oral hypoglycemic drugs; Z79.4 Long term (current) use of insulin; Z20.822 Contact with and (suspected) exposure to COVID-19
CPT/HCPCS: G0378; J1650; J3475

== ENCOUNTER 2022-05-07 09:38 | Observation (INO) | payer OTHER ==
[~2022-05-07] VITALS: Ht 152.4 cm; Wt 48.0 kg
[2022-05-07] VITALS (23 sets, daily range): BP systolic 83–122; BP diastolic 53–79
[~2022-05-07 09:38] MED LIST changes: +CARAFATE1 GM PO; +FAMOTIDINE20 M1 PO; +OMEPRAZOLE DR40 MG PO
[2022-05-07] MEDS ORDERED: LISINOPRIL10 MG PO (09:47)
[2022-05-07] MEDS ORDERED: TALICIA PO (09:47)
[2022-05-07] MEDS ORDERED: CIPROFLOXACN500 MG PO (09:48)
[2022-05-07] MEDS ORDERED: OMEPRAZOLE DR40 MG (09:48)
[2022-05-07] MEDS ORDERED: LEVEMIR FL100 UNIT/M SC (10:09)
[2022-05-07] MEDS ORDERED: METFORMIN HCL1000 MG PO (10:09)
[2022-05-07 10:11] LABS: IMMATURE GRANULOCYTES 0.3 % (0.0-5.0); MEAN CELL VOLUME 90.2 fL CALC (80.0-100.0); MEAN CORPUSCULAR HGB 30.8 pG CALC (26.0-32.0); MEAN CORPUSCULAR HGB CONC 34.1 g/dL CAL (32.0-36.0); NEUT# 3.77 thou/uL (2.00-7.15); RED CELL DISTRI WIDTH 13.3 % (11.5-15.5)
[2022-05-07 10:19] LABS: HEMATOCRIT 45.1 % (37.0-47.0); HEMOGLOBIN 15.4 g/dl (12.0-16.0)
[2022-05-07 10:21] LABS: INTERNATIONAL NORMALIZED RATIO 0.9 RATIO (0.7-1.3); PROTHROMBIN TIME 9.6 SECONDS (9.0-12.5)
[2022-05-07 10:26] LABS: ALKALINE PHOSPHATASE 116 u/l (38-126); AMYLASE 90 u/l (30-110); BUN 19 mg/dL (7-17); BUN/CREATININE RATIO 20 (12-20 (CALC)); CARBON DIOXIDE 26 mmol/l (22-30); CHLORIDE 99 mmol/l (95-108); GFR FOR AFR.AMER. > 60 ML/MIN (>=60 (CALC)); GFR OTHER RACES 59 ML/MIN (>=60 (CALC)); LIPASE 30 u/l (23-300); SGOT/AST 30 u/l (14-36); SODIUM 135 mmol/l (137-146)
[2022-05-07 10:35] LABS: ALBUMIN 4.2 g/dL (3.2-5.0); ANION GAP 15 (6-22 (CALC)); POTASSIUM 4.5 mmol/l (3.5-5.1); TOTAL PROTEIN 8.4 g/dL (6.3-8.2)
[2022-05-07 10:36] LABS: MYOGLOBIN 30 ng/mL (0 - 62)
[2022-05-07 20:23] LABS: URINE BILIRUBIN - DIPSTICK NEGATIVE (NEGATIVE); URINE BLOOD DIPSTICK NEGATIVE (NEGATIVE); URINE COLOR YELLOW; URINE GLUCOSE - DIPSTICK 500 mg/dL (NEGATIVE); URINE KETONE NEGATIVE (NEGATIVE); URINE PH 5.5 (4.5-8.0); URINE PROTEIN - DIPSTICK 30 mg/dL (NEG-TRACE); URINE SPECIFIC GRAVITY 1.025; URINE UROBILINOGEN - DIPSTICK 0.2 E.U./dL (0.2)
[2022-05-07 20:25] LABS: URINE LEUK ESTERASE SMALL (NEGATIVE); URINE NITRITE - DIPSTICK NEGATIVE (Negative)
[2022-05-07 20:28] LABS: URINE RBC 0-2 RBC/hpf (0-5); URINE SQUAMOUS EPITHELIAL CELL MANY EPI/hpf (0-FEW); URINE WBC 20-50 WBC/hpf (0-5)
[2022-05-08 00:33] VITALS: BP 103/64
[2022-05-08 04:46] VITALS: BP 123/68
[2022-05-08 06:03] LABS: MEAN CELL VOLUME 91.4 fL CALC (80.0-100.0); MEAN CORPUSCULAR HGB 30.7 pG CALC (26.0-32.0); MEAN CORPUSCULAR HGB CONC 33.5 g/dL CAL (32.0-36.0); RED BLOOD COUNT 3.49 mill/uL (4.20-5.60); RED CELL DISTRI WIDTH 13.4 % (11.5-15.5)
[2022-05-08 06:06] LABS: HEMATOCRIT 31.9 % (37.0-47.0); HEMOGLOBIN 10.7 g/dl (12.0-16.0)
[2022-05-08 06:20] LABS: ANION GAP 3 (6-22 (CALC)); BUN 14 mg/dL (7-17); BUN/CREATININE RATIO 21 (12-20 (CALC)); CALCULATED LDLCHOLESTEROL 95 mg/dL (62-129 (CALC)); CARBON DIOXIDE 29 mmol/l (22-30); CHLORIDE 108 mmol/l (95-108); CHOLESTEROL HDL RATIO 6.4 (<4.4 (CALC)); CREATININE 0.7 mg/dL (0.5-1.0); GFR FOR AFR.AMER. > 60 ML/MIN (>=60 (CALC)); GFR OTHER RACES > 60 ML/MIN (>=60 (CALC)); HDL CHOLESTEROL 28 mg/dL (>=40); MAGNESIUM 1.7 mg/dL (1.6-2.3); POTASSIUM 3.8 mmol/l (3.5-5.1); SODIUM 136 mmol/l (137-146); TOTAL CHOLESTEROL 182 mg/dl (0-199); TOTAL TRIGLYCERIDES 294 mg/dl (30-149); VLDL CHOLESTROL 59 mg/dl (1-41 (CALC))
[2022-05-08 07:19] VITALS: BP 123/79
[2022-05-08 10:39] VITALS: BP 133/111
[2022-05-08] MEDS ORDERED: HYDROCHLOROT25 MG PO (11:56)
[2022-05-08] MEDS ORDERED: OMEPRAZOLE DR40 MG PO (11:57)
[2022-05-08 15:21] VITALS: BP 134/84
[2022-05-08 22:48] VITALS: BP 137/83
[2022-05-09 03:14] VITALS: BP 124/79
[2022-05-09 07:11] VITALS: BP 154/98
[2022-05-09 10:27] VITALS: BP 142/88
[2022-05-09 11:08] LABS: HEMATOCRIT 35.4 % (37.0-47.0); HEMOGLOBIN 12.1 g/dl (12.0-16.0); MEAN CELL VOLUME 90.1 fL CALC (80.0-100.0); MEAN CORPUSCULAR HGB 30.8 pG CALC (26.0-32.0); MEAN CORPUSCULAR HGB CONC 34.2 g/dL CAL (32.0-36.0); RED BLOOD COUNT 3.93 mill/uL (4.20-5.60); RED CELL DISTRI WIDTH 13.2 % (11.5-15.5)
[2022-05-09 11:28] LABS: ALKALINE PHOSPHATASE 90 u/l (38-126); ANION GAP 5 (6-22 (CALC)); BILIRUBIN, TOTAL 0.4 mg/dL (0.0-1.4); BUN 7 mg/dL (7-17); BUN/CREATININE RATIO 11 (12-20 (CALC)); CARBON DIOXIDE 31 mmol/l (22-30); CHLORIDE 107 mmol/l (95-108); CREATININE 0.6 mg/dL (0.5-1.0); GFR FOR AFR.AMER. > 60 ML/MIN (>=60 (CALC)); GFR OTHER RACES > 60 ML/MIN (>=60 (CALC)); POTASSIUM 3.6 mmol/l (3.5-5.1); SGOT/AST 19 u/l (14-36); SODIUM 139 mmol/l (137-146); TOTAL PROTEIN 5.8 g/dL (6.3-8.2)
[2022-05-09 15:07] VITALS: BP 126/79
[2022-05-09 18:58] VITALS: BP 96/62
[2022-05-10 00:19] VITALS: BP 123/75
[2022-05-10 04:17] VITALS: BP 122/81
[2022-05-10 05:33] LABS: HEMATOCRIT 31.3 % (37.0-47.0); HEMOGLOBIN 10.8 g/dl (12.0-16.0); MEAN CELL VOLUME 90.7 fL CALC (80.0-100.0); MEAN CORPUSCULAR HGB 31.3 pG CALC (26.0-32.0); MEAN CORPUSCULAR HGB CONC 34.5 g/dL CAL (32.0-36.0); NEUT# 1.61 thou/uL (2.00-7.15); RED BLOOD COUNT 3.45 mill/uL (4.20-5.60); RED CELL DISTRI WIDTH 13.4 % (11.5-15.5)
[2022-05-10 06:04] LABS: ALBUMIN 2.5 g/dL (3.2-5.0); ALKALINE PHOSPHATASE 80 u/l (38-126); ANION GAP 5 (6-22 (CALC)); BUN 7 mg/dL (7-17); BUN/CREATININE RATIO 13 (12-20 (CALC)); CARBON DIOXIDE 28 mmol/l (22-30); CHLORIDE 109 mmol/l (95-108); CREATININE 0.5 mg/dL (0.5-1.0); GFR FOR AFR.AMER. > 60 ML/MIN (>=60 (CALC)); GFR OTHER RACES > 60 ML/MIN (>=60 (CALC)); MAGNESIUM 1.8 mg/dL (1.6-2.3); POTASSIUM 3.2 mmol/l (3.5-5.1); SGOT/AST 15 u/l (14-36); SODIUM 139 mmol/l (137-146); TOTAL PROTEIN 5.1 g/dL (6.3-8.2)
[2022-05-10 06:07] LABS: BILIRUBIN, TOTAL 0.2 mg/dL (0.0-1.4)
[2022-05-10 06:53] VITALS: BP 137/79
[2022-05-10 10:43] VITALS: BP 146/86
[2022-05-10 14:59] VITALS: BP 130/90
[2022-05-10 19:23] VITALS: BP 116/63
[2022-05-11 00:43] VITALS: BP 131/80
[2022-05-11 04:33] VITALS: BP 136/86
[2022-05-11 05:24] LABS: HEMATOCRIT 31.3 % (37.0-47.0); HEMOGLOBIN 10.5 g/dl (12.0-16.0); IMMATURE GRANULOCYTES 0.2 % (0.0-5.0); MEAN CELL VOLUME 91.3 fL CALC (80.0-100.0); MEAN CORPUSCULAR HGB 30.6 pG CALC (26.0-32.0); MEAN CORPUSCULAR HGB CONC 33.5 g/dL CAL (32.0-36.0); NEUT# 2.15 thou/uL (2.00-7.15); RED BLOOD COUNT 3.43 mill/uL (4.20-5.60); RED CELL DISTRI WIDTH 13.3 % (11.5-15.5)
[2022-05-11 05:53] LABS: ANION GAP 4 (6-22 (CALC)); BUN 7 mg/dL (7-17); BUN/CREATININE RATIO 14 (12-20 (CALC)); CARBON DIOXIDE 29 mmol/l (22-30); CHLORIDE 109 mmol/l (95-108); CREATININE 0.5 mg/dL (0.5-1.0); GFR FOR AFR.AMER. > 60 ML/MIN (>=60 (CALC)); GFR OTHER RACES > 60 ML/MIN (>=60 (CALC)); MAGNESIUM 1.7 mg/dL (1.6-2.3); POTASSIUM 3.2 mmol/l (3.5-5.1); SODIUM 139 mmol/l (137-146)
[2022-05-11 06:43] VITALS: BP 131/79
[2022-05-11] MEDS ORDERED: PROTONIX40 M3 PO (10:12)
[2022-05-11] MEDS ORDERED: ZOFRAN4 MG/TAB PO (10:14)
[2022-05-11 10:38] VITALS: BP 148/88
== END 2022-05-11 11:18 | disposition home or self-care (01) | DRG 392 ==
LOC: ED 09:38 → ED-I 11:15 → ED 11:32 → MS2 11:33
PROVIDERS: Internal Medicine; Nurse Practitioner; ADMIT Hospitalist; ATTEND Hospitalist
DX: R11.2 Nausea with vomiting, unspecified (principal); A04.8 Other specified bacterial intestinal infections; R12 Heartburn; E87.6 Hypokalemia; E11.65 Type 2 diabetes mellitus with hyperglycemia; I10 Essential (primary) hypertension; Z79.84 Long term (current) use of oral hypoglycemic drugs; Z79.4 Long term (current) use of insulin; Z20.822 Contact with and (suspected) exposure to COVID-19
CPT/HCPCS: G0378; J1650; S0164

== ENCOUNTER 2022-05-21 16:54 | Emergency (ER) | payer OTHER ==
[~2022-05-21] VITALS: Ht 152.4 cm; Wt 45.4 kg
[~2022-05-21 16:54] MED LIST changes: +LEVEMIR FL100 UNIT/M SC; +LISINOPRIL10 MG PO; +METFORMIN HCL1000 MG PO; +OMEPRAZOLE DR40 MG; +PROTONIX40 M3 PO; +TALICIA PO
[2022-05-21 18:53] LABS: IMMATURE GRANULOCYTES 0.2 % (0.0-5.0); MEAN CELL VOLUME 90.3 fL CALC (80.0-100.0); MEAN CORPUSCULAR HGB 30.8 pG CALC (26.0-32.0); MEAN CORPUSCULAR HGB CONC 34.1 g/dL CAL (32.0-36.0); NEUT# 6.67 thou/uL (2.00-7.15); RED BLOOD COUNT 4.35 mill/uL (4.20-5.60); RED CELL DISTRI WIDTH 13.1 % (11.5-15.5)
[2022-05-21 18:57] LABS: HEMATOCRIT 39.3 % (37.0-47.0); HEMOGLOBIN 13.4 g/dl (12.0-16.0)
[2022-05-21 19:03] LABS: URINE BACTERIA MANY hpf; URINE BILIRUBIN - DIPSTICK NEGATIVE (NEGATIVE); URINE BLOOD DIPSTICK TRACE-INTACT (NEGATIVE); URINE COLOR YELLOW; URINE GLUCOSE - DIPSTICK >=1000 mg/dL (NEGATIVE); URINE KETONE NEGATIVE (NEGATIVE); URINE LEUK ESTERASE NEGATIVE (NEGATIVE); URINE NITRITE - DIPSTICK NEGATIVE (Negative); URINE PROTEIN - DIPSTICK 100 mg/dL (NEG-TRACE); URINE RBC 0-2 RBC/hpf (0-5); URINE SPECIFIC GRAVITY 1.025; URINE SQUAMOUS EPITHELIAL CELL FEW EPI/hpf (0-FEW); URINE UROBILINOGEN - DIPSTICK 0.2 E.U./dL (0.2)
[2022-05-21 19:10] LABS: AMYLASE 95 u/l (30-110); BUN 21 mg/dL (7-17); BUN/CREATININE RATIO 27 (12-20 (CALC)); CARBON DIOXIDE 32 mmol/l (22-30); CHLORIDE 100 mmol/l (95-108); CREATININE 0.8 mg/dL (0.5-1.0); GFR FOR AFR.AMER. > 60 ML/MIN (>=60 (CALC)); GFR OTHER RACES > 60 ML/MIN (>=60 (CALC)); LIPASE 24 u/l (23-300); SODIUM 135 mmol/l (137-146)
[2022-05-21 19:13] LABS: ALKALINE PHOSPHATASE 272 u/l (38-126); ANION GAP 7 (6-22 (CALC)); BILIRUBIN, TOTAL 0.8 mg/dL (0.0-1.4); POTASSIUM 4.1 mmol/l (3.5-5.1); SGOT/AST 257 u/l (14-36); TOTAL PROTEIN 7.3 g/dL (6.3-8.2)
[2022-05-21 19:22] LABS: MYOGLOBIN 26 ng/mL (0 - 62)
[2022-05-21] MEDS ORDERED: ULTRAM50 M1 PO (22:29)
[2022-05-21] MEDS ORDERED: ONDANSETRON4 MG PO (22:29)
[2022-05-21] MEDS ORDERED: KEFLEX500 MG PO (22:29)
[2022-05-21 22:55] VITALS: BP 139/84
== END 2022-05-21 22:55 | disposition home or self-care (01) | DRG 690 ==
LOC: ED 16:54
PROVIDERS: Emergency Medicine
DX: N39.0 Urinary tract infection, site not specified (principal); K29.70 Gastritis, unspecified, without bleeding; E11.65 Type 2 diabetes mellitus with hyperglycemia; R74.8 Abnormal levels of other serum enzymes; Z79.4 Long term (current) use of insulin; I10 Essential (primary) hypertension; B96.89 Other specified bacterial agents as the cause of diseases classified elsewhere; Z79.84 Long term (current) use of oral hypoglycemic drugs
CPT/HCPCS: Q9967; S0164

== ENCOUNTER 2022-06-25 10:15 | Observation (INO) | payer OTHER ==
[2022-06-25] VITALS (13 sets, daily range): BP systolic 92–127; BP diastolic 51–74
[~2022-06-25] VITALS: Ht 152.4 cm; Wt 51.4 kg
[2022-06-25] MEDS ORDERED: METOPROL TAR25 MG PO (10:55)
[2022-06-25] MEDS ORDERED: ROSUVASTATIN CA10 MG PO (10:55)
[2022-06-25] MEDS ORDERED: PROTONIX40 M2 PO (10:56)
[2022-06-25 10:58] LABS: IMMATURE GRANULOCYTES 0.4 % (0.0-5.0); MEAN CELL VOLUME 88.2 fL CALC (80.0-100.0); MEAN CORPUSCULAR HGB 30.7 pG CALC (26.0-32.0); MEAN CORPUSCULAR HGB CONC 34.8 g/dL CAL (32.0-36.0); NEUT# 12.28 thou/uL (2.00-7.15); RED BLOOD COUNT 2.38 mill/uL (4.20-5.60); RED CELL DISTRI WIDTH 12.9 % (11.5-15.5)
[2022-06-25 11:06] LABS: HEMOGLOBIN 7.3 g/dl (12.0-16.0)
[2022-06-25 11:08] LABS: ALBUMIN 3.7 g/dL (3.2-5.0); ALKALINE PHOSPHATASE 226 u/l (38-126); ANION GAP 11 (6-22 (CALC)); BILIRUBIN, TOTAL 1.1 mg/dL (0.0-1.4); BUN 16 mg/dL (7-17); BUN/CREATININE RATIO 19 (12-20 (CALC)); CARBON DIOXIDE 30 mmol/l (22-30); CHLORIDE 98 mmol/l (95-108); CREATININE 0.8 mg/dL (0.5-1.0); GFR FOR AFR.AMER. > 60 ML/MIN (>=60 (CALC)); GFR OTHER RACES > 60 ML/MIN (>=60 (CALC)); POTASSIUM 3.5 mmol/l (3.5-5.1); SGOT/AST 115 u/l (14-36); SODIUM 136 mmol/l (137-146); TOTAL PROTEIN 7.3 g/dL (6.3-8.2)
[2022-06-25] MEDS ORDERED: OMEPRAZOLE DR40 MG PO (12:53)
[2022-06-25] MEDS ORDERED: PAROXETINE10 MG PO (12:53)
[2022-06-25] MEDS ORDERED: TRIAMCINOLON0.11 TOP (12:54)
[2022-06-25] MEDS ORDERED: PROMETHAZINE HY25 M1 PO (12:54)
[2022-06-25] MEDS ORDERED: TOPROL XL25 M1 PO (12:54)
[2022-06-26 00:43] VITALS: BP 141/79
[2022-06-26 04:53] LABS: IMMATURE GRANULOCYTES 0.5 % (0.0-5.0); MEAN CELL VOLUME 85.6 fL CALC (80.0-100.0); MEAN CORPUSCULAR HGB 29.3 pG CALC (26.0-32.0); MEAN CORPUSCULAR HGB CONC 34.3 g/dL CAL (32.0-36.0); NEUT# 4.36 thou/uL (2.00-7.15); RED BLOOD COUNT 4.5 mill/uL (4.20-5.60); RED CELL DISTRI WIDTH 13.8 % (11.5-15.5)
[2022-06-26 05:15] LABS: ANION GAP 8 (6-22 (CALC)); BUN 14 mg/dL (7-17); BUN/CREATININE RATIO 19 (12-20 (CALC)); CARBON DIOXIDE 27 mmol/l (22-30); CHLORIDE 103 mmol/l (95-108); CREATININE 0.7 mg/dL (0.5-1.0); GFR FOR AFR.AMER. > 60 ML/MIN (>=60 (CALC)); GFR OTHER RACES > 60 ML/MIN (>=60 (CALC)); POTASSIUM 3.5 mmol/l (3.5-5.1); SODIUM 135 mmol/l (137-146)
[2022-06-26 05:24] LABS: HEMATOCRIT 38.5 % (37.0-47.0); HEMOGLOBIN 13.2 g/dl (12.0-16.0)
[2022-06-26 05:35] VITALS: BP 135/78
[2022-06-26 06:04] VITALS: BP 133/78
[2022-06-26 10:48] VITALS: BP 143/71
[2022-06-26 11:45] LABS: HEMOGLOBIN 14.7 g/dl (12.0-16.0)
[2022-06-26 15:44] VITALS: BP 122/68
== END 2022-06-26 16:15 | disposition home or self-care (01) | DRG 812 ==
LOC: ED 10:15 → ED-I 12:15 → ED 12:29 → MS2 12:30
PROVIDERS: Family Medicine; Internal Medicine; ADMIT Internal Medicine; ATTEND Internal Medicine
PROC: 30233N1 Transfusion of Nonautologous Red Blood Cells into Peripheral Vein, Percutaneous Approach (ICD-10-PCS; principal; 2022-06-25)
DX: D64.9 Anemia, unspecified (principal); I10 Essential (primary) hypertension; E11.9 Type 2 diabetes mellitus without complications; Z79.84 Long term (current) use of oral hypoglycemic drugs; Z79.4 Long term (current) use of insulin
CPT/HCPCS: G0378; P9016; Q9967

== ENCOUNTER 2022-07-04 10:36 | Emergency (ER) | payer OTHER ==
[~2022-07-04] VITALS: Ht 152.4 cm; Wt 50.0 kg
[~2022-07-04 10:36] MED LIST changes: +METOPROL TAR25 MG PO; +ROSUVASTATIN CA10 MG PO; +TOPROL XL25 M1 PO; +TRIAMCINOLON0.11 TOP
[2022-07-04 10:43] VITALS: BP 127/88
[2022-07-04 11:00] VITALS: BP 122/80
[2022-07-04 11:30] VITALS: BP 132/84
[2022-07-04 12:00] VITALS: BP 129/88
[2022-07-04 12:46] LABS: HEMATOCRIT 40.6 % (37.0-47.0); HEMOGLOBIN 13.9 g/dl (12.0-16.0); IMMATURE GRANULOCYTES 0.7 % (0.0-5.0); MEAN CELL VOLUME 84.9 fL CALC (80.0-100.0); MEAN CORPUSCULAR HGB 29.1 pG CALC (26.0-32.0); MEAN CORPUSCULAR HGB CONC 34.2 g/dL CAL (32.0-36.0); NEUT# 3.83 thou/uL (2.00-7.15); RED BLOOD COUNT 4.78 mill/uL (4.20-5.60); RED CELL DISTRI WIDTH 13.1 % (11.5-15.5)
[2022-07-04 13:08] LABS: ALBUMIN 3.8 g/dL (3.2-5.0); ALKALINE PHOSPHATASE 296 u/l (38-126); ANION GAP 13 (6-22 (CALC)); BUN 20 mg/dL (7-17); BUN/CREATININE RATIO 31 (12-20 (CALC)); CARBON DIOXIDE 28 mmol/l (22-30); CHLORIDE 97 mmol/l (95-108); CPK 23 u/l (30-165); CREATININE 0.6 mg/dL (0.5-1.0); GFR FOR AFR.AMER. > 60 ML/MIN (>=60 (CALC)); GFR OTHER RACES > 60 ML/MIN (>=60 (CALC)); SGOT/AST 43 u/l (14-36); SODIUM 134 mmol/l (137-146); TOTAL PROTEIN 7.3 g/dL (6.3-8.2)
[2022-07-04 13:09] LABS: BILIRUBIN, TOTAL 0.6 mg/dL (0.0-1.4)
[2022-07-04] MEDS ORDERED: HYDROCO/APAP1 TA9 PO (13:30)
[2022-07-04 13:36] VITALS: BP 129/88
== END 2022-07-04 13:41 | disposition home or self-care (01) | DRG 556 ==
LOC: ED 10:36
PROVIDERS: Internal Medicine
DX: M79.604 Pain in right leg (principal); R79.89 Other specified abnormal findings of blood chemistry; E11.42 Type 2 diabetes mellitus with diabetic polyneuropathy; I10 Essential (primary) hypertension; Z79.4 Long term (current) use of insulin; Z79.899 Other long term (current) drug therapy

== ENCOUNTER 2022-07-22 13:45 | Emergency (ER) | payer OTHER ==
[~2022-07-22] VITALS: Ht 152.4 cm; Wt 50.0 kg
[~2022-07-22 13:45] MED LIST changes: +HYDROCO/APAP1 TA9 PO
[2022-07-22 13:57] VITALS: BP 149/90
[2022-07-22 14:00] VITALS: BP 158/90
[2022-07-22 14:32] LABS: HEMATOCRIT 41.3 % (37.0-47.0); HEMOGLOBIN 14.3 g/dl (12.0-16.0); IMMATURE GRANULOCYTES 0.8 % (0.0-5.0); MEAN CELL VOLUME 85.3 fL CALC (80.0-100.0); MEAN CORPUSCULAR HGB 29.5 pG CALC (26.0-32.0); MEAN CORPUSCULAR HGB CONC 34.6 g/dL CAL (32.0-36.0); NEUT# 4.51 thou/uL (2.00-7.15); RED BLOOD COUNT 4.84 mill/uL (4.20-5.60); RED CELL DISTRI WIDTH 13.7 % (11.5-15.5)
[2022-07-22 14:39] LABS: ALKALINE PHOSPHATASE 246 u/l (38-126); ANION GAP 12 (6-22 (CALC)); BILIRUBIN, TOTAL 0.6 mg/dL (0.0-1.4); BUN 12 mg/dL (7-17); BUN/CREATININE RATIO 21 (12-20 (CALC)); CARBON DIOXIDE 33 mmol/l (22-30); CHLORIDE 95 mmol/l (95-108); CREATININE 0.6 mg/dL (0.5-1.0); GFR FOR AFR.AMER. > 60 ML/MIN (>=60 (CALC)); GFR OTHER RACES > 60 ML/MIN (>=60 (CALC)); LIPASE 11 u/l (23-300); POTASSIUM 4.2 mmol/l (3.5-5.1); SGOT/AST 49 u/l (14-36); SODIUM 136 mmol/l (137-146)
[2022-07-22 15:49] LABS: URINE BILIRUBIN - DIPSTICK NEGATIVE (NEGATIVE); URINE BLOOD DIPSTICK SMALL (NEGATIVE); URINE COLOR YELLOW; URINE GLUCOSE - DIPSTICK >=1000 mg/dL (NEGATIVE); URINE KETONE NEGATIVE (NEGATIVE); URINE PH 6.5 (4.5-8.0); URINE PROTEIN - DIPSTICK 100 mg/dL (NEG-TRACE); URINE UROBILINOGEN - DIPSTICK 0.2 E.U./dL (0.2)
[2022-07-22 15:52] LABS: URINE LEUK ESTERASE MODERATE (NEGATIVE); URINE NITRITE - DIPSTICK NEGATIVE (Negative)
[2022-07-22 16:02] LABS: URINE WBC >100 WBC/hpf (0-5)
[2022-07-22] MEDS ORDERED: DICYCLOMINE HCL20 MG PO (17:02)
[2022-07-22] MEDS ORDERED: PYRIDIUM200 MG PO (17:02)
[2022-07-22 17:07] VITALS: BP 158/90
== END 2022-07-22 17:10 | disposition home or self-care (01) | DRG 690 ==
LOC: ED 13:45
PROVIDERS: Internal Medicine
DX: N39.0 Urinary tract infection, site not specified (principal); R74.8 Abnormal levels of other serum enzymes; I10 Essential (primary) hypertension; E11.9 Type 2 diabetes mellitus without complications; Z79.4 Long term (current) use of insulin; T37.8X6A Underdosing of other specified systemic anti-infectives and antiparasitics, initial encounter; Z91.128 Patient's intentional underdosing of medication regimen for other reason

== ENCOUNTER 2022-08-05 19:03 | Inpatient (IN) | payer OTHER ==
[~2022-08-05] VITALS: Ht 152.4 cm; Wt 45.0 kg
[2022-08-05] VITALS (14 sets, daily range): BP systolic 97–149; BP diastolic 56–88
[~2022-08-05 19:03] MED LIST changes: +DICYCLOMINE HCL20 MG PO; +PYRIDIUM200 MG PO
[2022-08-05] MEDS ORDERED: METFORMIN HCL500 M2 PO (20:12)
[2022-08-05 20:17] LABS: HEMATOCRIT 43.6 % (37.0-47.0); HEMOGLOBIN 15.2 g/dl (12.0-16.0); IMMATURE GRANULOCYTES 0.5 % (0.0-5.0); MEAN CELL VOLUME 85.7 fL CALC (80.0-100.0); MEAN CORPUSCULAR HGB 29.9 pG CALC (26.0-32.0); MEAN CORPUSCULAR HGB CONC 34.9 g/dL CAL (32.0-36.0); NEUT# 9.19 thou/uL (2.00-7.15); RED BLOOD COUNT 5.09 mill/uL (4.20-5.60); RED CELL DISTRI WIDTH 13.2 % (11.5-15.5)
[2022-08-05 20:22] LABS: ALBUMIN 4.7 g/dL (3.2-5.0); ALKALINE PHOSPHATASE 254 u/l (38-126); ANION GAP 19 (6-22 (CALC)); BUN 18 mg/dL (7-17); BUN/CREATININE RATIO 20 (12-20 (CALC)); CARBON DIOXIDE 29 mmol/l (22-30); CHLORIDE 88 mmol/l (95-108); CREATININE 0.9 mg/dL (0.5-1.0); GFR FOR AFR.AMER. > 60 ML/MIN (>=60 (CALC)); GFR OTHER RACES > 60 ML/MIN (>=60 (CALC)); LIPASE 20 u/l (23-300); POTASSIUM 4.3 mmol/l (3.5-5.1); SGOT/AST 27 u/l (14-36); SODIUM 132 mmol/l (137-146); TOTAL PROTEIN 9.6 g/dL (6.3-8.2)
[2022-08-05 20:28] LABS: BILIRUBIN, TOTAL 1.1 mg/dL (0.0-1.4)
[2022-08-05 22:24] LABS: URINE BILIRUBIN - DIPSTICK NEGATIVE (NEGATIVE); URINE BLOOD DIPSTICK MODERATE (NEGATIVE); URINE COLOR YELLOW; URINE GLUCOSE - DIPSTICK >=1000 mg/dL (NEGATIVE); URINE KETONE NEGATIVE (NEGATIVE); URINE PROTEIN - DIPSTICK 100 mg/dL (NEG-TRACE); URINE UROBILINOGEN - DIPSTICK 0.2 E.U./dL (0.2)
[2022-08-05 22:26] LABS: URINE LEUK ESTERASE SMALL (NEGATIVE); URINE NITRITE - DIPSTICK NEGATIVE (Negative)
[2022-08-05 22:31] LABS: URINE BACTERIA MANY hpf; URINE SQUAMOUS EPITHELIAL CELL FEW EPI/hpf (0-FEW); URINE WBC >100 WBC/hpf (0-5)
[2022-08-06 00:58] VITALS: BP 101/64
[2022-08-06 04:25] VITALS: BP 83/46
[2022-08-06 04:45] VITALS: BP 92/56
[2022-08-06 05:12] LABS: IMMATURE GRANULOCYTES 0.2 % (0.0-5.0); MEAN CELL VOLUME 85.1 fL CALC (80.0-100.0); MEAN CORPUSCULAR HGB 29.7 pG CALC (26.0-32.0); MEAN CORPUSCULAR HGB CONC 34.9 g/dL CAL (32.0-36.0); NEUT# 7.12 thou/uL (2.00-7.15); RED BLOOD COUNT 3.97 mill/uL (4.20-5.60); RED CELL DISTRI WIDTH 13.3 % (11.5-15.5)
[2022-08-06 05:13] LABS: HEMATOCRIT 33.8 % (37.0-47.0); HEMOGLOBIN 11.8 g/dl (12.0-16.0)
[2022-08-06 05:34] LABS: ANION GAP 14 (6-22 (CALC)); BUN 17 mg/dL (7-17); BUN/CREATININE RATIO 21 (12-20 (CALC)); CARBON DIOXIDE 25 mmol/l (22-30); CHLORIDE 96 mmol/l (95-108); CREATININE 0.8 mg/dL (0.5-1.0); GFR FOR AFR.AMER. > 60 ML/MIN (>=60 (CALC)); GFR OTHER RACES > 60 ML/MIN (>=60 (CALC)); POTASSIUM 3.5 mmol/l (3.5-5.1); SODIUM 132 mmol/l (137-146)
[2022-08-06 07:37] VITALS: BP 94/62
[2022-08-06 15:30] VITALS: BP 132/75
[2022-08-06 19:02] VITALS: BP 91/45
[2022-08-07 04:41] VITALS: BP 138/83
[2022-08-07 06:43] VITALS: BP 142/87
[2022-08-07] MEDS ORDERED: VANTIN100 MG PO (12:29)
[2022-08-07] MEDS ORDERED: PANTOPRAZOLE SO40 M1 PO (12:29)
== END 2022-08-07 13:45 | disposition home or self-care (01) | DRG 690 ==
LOC: ED 19:03 → MS2 23:48
PROVIDERS: Emergency Medicine; ADMIT Internal Medicine; ATTEND Internal Medicine
DX: N10 Acute pyelonephritis (principal); E11.65 Type 2 diabetes mellitus with hyperglycemia; I10 Essential (primary) hypertension; E03.9 Hypothyroidism, unspecified; B96.89 Other specified bacterial agents as the cause of diseases classified elsewhere; Z79.4 Long term (current) use of insulin; Z79.84 Long term (current) use of oral hypoglycemic drugs; Z90.49 Acquired absence of other specified parts of digestive tract; Z87.440 Personal history of urinary (tract) infections; Z20.822 Contact with and (suspected) exposure to COVID-19
CPT/HCPCS: J1650; Q9967; S0164

== ENCOUNTER 2022-08-21 11:34 | Emergency (ER) | payer OTHER ==
[2022-08-21] VITALS (10 sets, daily range): BP systolic 100–150; BP diastolic 66–93
[~2022-08-21] VITALS: Ht 152.4 cm; Wt 45.0 kg
[~2022-08-21 11:34] MED LIST changes: +METFORMIN HCL500 M2 PO; +PANTOPRAZOLE SO40 M1 PO; +VANTIN100 MG PO
[2022-08-21] MEDS ORDERED: HYDROCHLOROTH12.5 MG PO (11:48)
[2022-08-21] MEDS ORDERED: NITROGLYCERIN0.4 MG SL (11:49)
[2022-08-21] MEDS ORDERED: ASPIRIN325 MG PO (11:51)
[2022-08-21] MEDS ORDERED: ISORDIL10 MG PO (11:51)
[2022-08-21] MEDS ORDERED: TOPROL XL25 M1 PO (11:51)
[2022-08-21 12:11] LABS: IMMATURE GRANULOCYTES 0.4 % (0.0-5.0); MEAN CELL VOLUME 84.7 fL CALC (80.0-100.0); MEAN CORPUSCULAR HGB 30.2 pG CALC (26.0-32.0); MEAN CORPUSCULAR HGB CONC 35.7 g/dL CAL (32.0-36.0); NEUT# 6.08 thou/uL (2.00-7.15); RED BLOOD COUNT 4.7 mill/uL (4.20-5.60); RED CELL DISTRI WIDTH 13.8 % (11.5-15.5)
[2022-08-21 12:15] LABS: HEMATOCRIT 39.8 % (37.0-47.0); HEMOGLOBIN 14.2 g/dl (12.0-16.0)
[2022-08-21 12:22] LABS: ALBUMIN 4.3 g/dL (3.2-5.0); ALKALINE PHOSPHATASE 235 u/l (38-126); ANION GAP 16 (6-22 (CALC)); BILIRUBIN, TOTAL 0.6 mg/dL (0.0-1.4); BUN 18 mg/dL (7-17); BUN/CREATININE RATIO 21 (12-20 (CALC)); CARBON DIOXIDE 30 mmol/l (22-30); CHLORIDE 92 mmol/l (95-108); CREATININE 0.8 mg/dL (0.5-1.0); GFR FOR AFR.AMER. > 60 ML/MIN (>=60 (CALC)); GFR OTHER RACES > 60 ML/MIN (>=60 (CALC)); LIPASE 37 u/l (23-300); POTASSIUM 4.4 mmol/l (3.5-5.1); SGOT/AST 55 u/l (14-36); SODIUM 134 mmol/l (137-146); TOTAL PROTEIN 8.9 g/dL (6.3-8.2)
[2022-08-21 13:26] LABS: URINE BILIRUBIN - DIPSTICK NEGATIVE (NEGATIVE); URINE BLOOD DIPSTICK TRACE-INTACT (NEGATIVE); URINE COLOR YELLOW; URINE GLUCOSE - DIPSTICK >=1000 mg/dL (NEGATIVE); URINE KETONE NEGATIVE (NEGATIVE); URINE LEUK ESTERASE NEGATIVE (NEGATIVE); URINE PROTEIN - DIPSTICK 100 mg/dL (NEG-TRACE); URINE SPECIFIC GRAVITY 1.015; URINE UROBILINOGEN - DIPSTICK 0.2 E.U./dL (0.2)
[2022-08-21 13:27] LABS: URINE NITRITE - DIPSTICK NEGATIVE (Negative)
[2022-08-21] MEDS ORDERED: LEVAQUIN750 M1 PO (14:16)
[2022-08-21] MEDS ORDERED: MOTRIN400 MG/TAB PO (14:16)
[2022-08-21] MEDS ORDERED: ZOFRAN4 MG/TAB PO (14:16)
== END 2022-08-21 14:31 | disposition home or self-care (01) | DRG 690 ==
LOC: ED 11:34
PROVIDERS: Family Medicine
DX: N12 Tubulo-interstitial nephritis, not specified as acute or chronic (principal); I10 Essential (primary) hypertension; E11.9 Type 2 diabetes mellitus without complications; Z79.84 Long term (current) use of oral hypoglycemic drugs; Z79.4 Long term (current) use of insulin
CPT/HCPCS: Q9967

== ENCOUNTER 2022-09-14 17:12 | Emergency (ER) | payer OTHER ==
[2022-09-14] VITALS (12 sets, daily range): BP systolic 124–166; BP diastolic 79–101
[~2022-09-14] VITALS: Ht 152.4 cm; Wt 50.0 kg
[~2022-09-14 17:12] MED LIST changes: +ASPIRIN325 MG PO; +HYDROCHLOROTH12.5 MG PO; +ISORDIL10 MG PO; +LEVAQUIN750 M1 PO; +MOTRIN400 MG/TAB PO; +NITROGLYCERIN0.4 MG SL
[2022-09-14 18:25] LABS: HEMATOCRIT 38.8 % (37.0-47.0); HEMOGLOBIN 13.4 g/dl (12.0-16.0); IMMATURE GRANULOCYTES 0.3 % (0.0-5.0); MEAN CELL VOLUME 86.2 fL CALC (80.0-100.0); MEAN CORPUSCULAR HGB 29.8 pG CALC (26.0-32.0); MEAN CORPUSCULAR HGB CONC 34.5 g/dL CAL (32.0-36.0); NEUT# 2.7 thou/uL (2.00-7.15); RED BLOOD COUNT 4.5 mill/uL (4.20-5.60); RED CELL DISTRI WIDTH 13.3 % (11.5-15.5)
[2022-09-14 18:26] LABS: URINE BILIRUBIN - DIPSTICK NEGATIVE (NEGATIVE); URINE BLOOD DIPSTICK TRACE-INTACT (NEGATIVE); URINE COLOR YELLOW; URINE GLUCOSE - DIPSTICK >=1000 mg/dL (NEGATIVE); URINE KETONE NEGATIVE (NEGATIVE); URINE LEUK ESTERASE NEGATIVE (NEGATIVE); URINE PROTEIN - DIPSTICK 30 mg/dL (NEG-TRACE); URINE SPECIFIC GRAVITY 1.015; URINE UROBILINOGEN - DIPSTICK 0.2 E.U./dL (0.2)
[2022-09-14 18:28] LABS: URINE NITRITE - DIPSTICK NEGATIVE (Negative); URINE RBC 0-2 RBC/hpf (0-5); URINE SQUAMOUS EPITHELIAL CELL FEW EPI/hpf (0-FEW)
[2022-09-14 18:45] LABS: ALKALINE PHOSPHATASE 153 u/l (38-126); AMYLASE 69 u/l (30-110); ANION GAP 11 (6-22 (CALC)); BILIRUBIN, TOTAL 0.4 mg/dL (0.0-1.4); BUN 19 mg/dL (7-17); BUN/CREATININE RATIO 22 (12-20 (CALC)); CARBON DIOXIDE 33 mmol/l (22-30); CHLORIDE 87 mmol/l (95-108); CREATININE 0.9 mg/dL (0.5-1.0); GFR FOR AFR.AMER. > 60 ML/MIN (>=60 (CALC)); GFR OTHER RACES > 60 ML/MIN (>=60 (CALC)); LIPASE 22 u/l (23-300); POTASSIUM 4.3 mmol/l (3.5-5.1); SGOT/AST 31 u/l (14-36); SODIUM 127 mmol/l (137-146); TOTAL PROTEIN 7.5 g/dL (6.3-8.2)
[2022-09-14] MEDS ORDERED: DICYCLOMINE10 MG PO (20:51)
[2022-09-14] MEDS ORDERED: ONDANSETRON4 MG PO (20:51)
== END 2022-09-14 21:25 | disposition home or self-care (01) | DRG 392 ==
LOC: ED 17:12
PROVIDERS: Nurse Practitioner
DX: K59.00 Constipation, unspecified (principal); E11.65 Type 2 diabetes mellitus with hyperglycemia; I10 Essential (primary) hypertension; Z79.84 Long term (current) use of oral hypoglycemic drugs; Z79.4 Long term (current) use of insulin

== ENCOUNTER 2022-10-13 18:13 | Emergency (ER) | payer OTHER ==
[~2022-10-13] VITALS: Ht 152.4 cm; Wt 54.0 kg
[~2022-10-13 18:13] MED LIST changes: +DICYCLOMINE10 MG PO; +TAMSULOSIN0.4 MG PO; +TYLENOL # 31 TA1 PO
[2022-10-13 20:16] LABS: HEMATOCRIT 39.2 % (37.0-47.0); HEMOGLOBIN 13.9 g/dl (12.0-16.0); IMMATURE GRANULOCYTES 0.6 % (0.0-5.0); MEAN CELL VOLUME 88.7 fL CALC (80.0-100.0); MEAN CORPUSCULAR HGB 31.4 pG CALC (26.0-32.0); MEAN CORPUSCULAR HGB CONC 35.5 g/dL CAL (32.0-36.0); NEUT# 2.51 thou/uL (2.00-7.15); RED BLOOD COUNT 4.42 mill/uL (4.20-5.60)
[2022-10-13 20:29] LABS: ALBUMIN 4.1 g/dL (3.2-5.0); ALKALINE PHOSPHATASE 147 u/l (38-126); ANION GAP 13 (6-22 (CALC)); BILIRUBIN, TOTAL 0.3 mg/dL (0.0-1.4); BUN 15 mg/dL (7-17); BUN/CREATININE RATIO 16 (12-20 (CALC)); CARBON DIOXIDE 29 mmol/l (22-30); CHLORIDE 98 mmol/l (95-108); CREATININE 0.9 mg/dL (0.5-1.0); GFR FOR AFR.AMER. > 60 ML/MIN (>=60 (CALC)); GFR OTHER RACES > 60 ML/MIN (>=60 (CALC)); LIPASE 21 u/l (23-300); POTASSIUM 3.9 mmol/l (3.5-5.1); SGOT/AST 29 u/l (14-36); SODIUM 136 mmol/l (137-146); TOTAL PROTEIN 7.8 g/dL (6.3-8.2)
[2022-10-13 23:41] LABS: URINE BILIRUBIN - DIPSTICK NEGATIVE (NEGATIVE); URINE BLOOD DIPSTICK TRACE-INTACT (NEGATIVE); URINE COLOR YELLOW; URINE GLUCOSE - DIPSTICK >=1000 mg/dL (NEGATIVE); URINE KETONE NEGATIVE (NEGATIVE); URINE LEUK ESTERASE TRACE (NEGATIVE); URINE PROTEIN - DIPSTICK 30 mg/dL (NEG-TRACE); URINE UROBILINOGEN - DIPSTICK 0.2 E.U./dL (0.2)
[2022-10-13 23:42] LABS: URINE NITRITE - DIPSTICK NEGATIVE (Negative)
[2022-10-13 23:51] LABS: URINE BACTERIA FEW hpf; URINE SQUAMOUS EPITHELIAL CELL FEW EPI/hpf (0-FEW)
[2022-10-14 00:15] VITALS: BP 103/77
== END 2022-10-14 00:20 | disposition home or self-care (01) | DRG 694 ==
LOC: ED 18:13
PROVIDERS: Family Medicine
DX: N20.2 Calculus of kidney with calculus of ureter (principal); I10 Essential (primary) hypertension; E11.9 Type 2 diabetes mellitus without complications

== ENCOUNTER 2022-11-29 18:04 | Emergency (ER) | payer OTHER ==
[2022-11-29] VITALS (15 sets, daily range): BP systolic 117–151; BP diastolic 72–95
[~2022-11-29] VITALS: Ht 152.4 cm; Wt 54.0 kg
[2022-11-29 19:19] LABS: URINE BILIRUBIN - DIPSTICK NEGATIVE (NEGATIVE); URINE BLOOD DIPSTICK SMALL (NEGATIVE); URINE COLOR YELLOW; URINE GLUCOSE - DIPSTICK >=1000 mg/dL (NEGATIVE); URINE KETONE NEGATIVE (NEGATIVE); URINE LEUK ESTERASE MODERATE (NEGATIVE); URINE NITRITE - DIPSTICK POSITIVE (Negative); URINE PH 7.5 (4.5-8.0); URINE PROTEIN - DIPSTICK 100 mg/dL (NEG-TRACE); URINE UROBILINOGEN - DIPSTICK 0.2 E.U./dL (0.2)
[2022-11-29 19:21] LABS: BASO% 0.6 % (0-3); EOS% 11.4 % (0-8); HEMATOCRIT 34.4 % (37.0-47.0); IMMATURE GRANULOCYTES 0.3 % (0.0-5.0); LYMPH% 35.4 % (15-41); MEAN CELL VOLUME 91.5 fL CALC (80.0-100.0); MEAN CORPUSCULAR HGB 31.1 pG CALC (26.0-32.0); MONO% 11.1 % (2-13); NEUT# 2.68 thou/uL (2.00-7.15); NEUT% 41.2 % (42-76); RED BLOOD COUNT 3.76 mill/uL (4.20-5.60); RED CELL DISTRI WIDTH 12.9 % (11.5-15.5)
[2022-11-29 19:22] LABS: HEMOGLOBIN 11.7 g/dl (12.0-16.0)
[2022-11-29 19:29] LABS: URINE BACTERIA FEW hpf; URINE SQUAMOUS EPITHELIAL CELL FEW EPI/hpf (0-FEW); URINE WBC >100 WBC/hpf (0-5)
[2022-11-29 19:35] LABS: ALBUMIN 3.7 g/dL (3.2-5.0); ALKALINE PHOSPHATASE 160 u/l (38-126); ANION GAP 10 (6-22 (CALC)); BUN 13 mg/dL (7-17); BUN/CREATININE RATIO 14 (12-20 (CALC)); CARBON DIOXIDE 34 mmol/l (22-30); CHLORIDE 95 mmol/l (95-108); CREATININE 0.9 mg/dL (0.5-1.0); GFR FOR AFR.AMER. > 60 ML/MIN (>=60 (CALC)); GFR OTHER RACES > 60 ML/MIN (>=60 (CALC)); LIPASE 26 u/l (23-300); POTASSIUM 4.2 mmol/l (3.5-5.1); SGOT/AST 27 u/l (14-36); SODIUM 135 mmol/l (137-146); TOTAL PROTEIN 7.1 g/dL (6.3-8.2)
[2022-11-29 19:36] LABS: BILIRUBIN, TOTAL 0.1 mg/dL (0.0-1.4)
[2022-11-30] MEDS ORDERED: LORTAB 1010 MG PO (00:13)
[2022-11-30] MEDS ORDERED: BACTRIM DS1 TAB PO (00:13)
[2022-11-30 00:45] VITALS: BP 134/72
== END 2022-11-30 00:45 | disposition left against medical advice (07) | DRG 313 ==
LOC: ED 18:04 → ED-I 21:35 → ED 11-30 00:45
PROVIDERS: Nurse Practitioner
DX: R07.9 Chest pain, unspecified (principal); N39.0 Urinary tract infection, site not specified; B96.89 Other specified bacterial agents as the cause of diseases classified elsewhere; R10.9 Unspecified abdominal pain; E11.65 Type 2 diabetes mellitus with hyperglycemia; Z79.4 Long term (current) use of insulin; R00.0 Tachycardia, unspecified
CPT/HCPCS: Q9967

== ENCOUNTER 2022-12-06 08:46 | Emergency (ER) | payer OTHER ==
[~2022-12-06] VITALS: Ht 152.4 cm; Wt 55.0 kg
[2022-12-06] VITALS (11 sets, daily range): BP systolic 143–166; BP diastolic 87–103
[2022-12-06 09:30] LABS: URINE BILIRUBIN - DIPSTICK NEGATIVE (NEGATIVE); URINE BLOOD DIPSTICK SMALL (NEGATIVE); URINE COLOR YELLOW; URINE GLUCOSE - DIPSTICK 250 mg/dL (NEGATIVE); URINE KETONE NEGATIVE (NEGATIVE); URINE LEUK ESTERASE TRACE (NEGATIVE); URINE PROTEIN - DIPSTICK 100 mg/dL (NEG-TRACE); URINE SPECIFIC GRAVITY 1.025; URINE UROBILINOGEN - DIPSTICK 0.2 E.U./dL (0.2)
[2022-12-06 09:31] LABS: URINE NITRITE - DIPSTICK NEGATIVE (Negative)
[2022-12-06 09:38] LABS: URINE RBC 0-2 RBC/hpf (0-5)
[2022-12-06 09:39] LABS: URINE SQUAMOUS EPITHELIAL CELL MODERATE EPI/hpf (0-FEW)
[2022-12-06 09:40] LABS: URINE BACTERIA MANY hpf; URINE WBC 50-100 WBC/hpf (0-5)
[2022-12-06 10:09] LABS: BASO% 0.4 % (0-3); EOS% 1.5 % (0-8); IMMATURE GRANULOCYTES 0.1 % (0.0-5.0); LYMPH% 23.9 % (15-41); MEAN CELL VOLUME 90.7 fL CALC (80.0-100.0); MEAN CORPUSCULAR HGB 30.8 pG CALC (26.0-32.0); MEAN CORPUSCULAR HGB CONC 33.9 g/dL CAL (32.0-36.0); MONO% 7.4 % (2-13); NEUT# 5.41 thou/uL (2.00-7.15); NEUT% 66.7 % (42-76); RED BLOOD COUNT 4.52 mill/uL (4.20-5.60)
[2022-12-06 10:11] LABS: HEMOGLOBIN 13.9 g/dl (12.0-16.0)
[2022-12-06 10:21] LABS: ALBUMIN 4.4 g/dL (3.2-5.0); CREATININE 1.2 mg/dL (0.5-1.0); POTASSIUM 4.3 mmol/l (3.5-5.1)
[2022-12-06 10:32] LABS: BILIRUBIN, TOTAL 0.5 mg/dL (0.0-1.4); TOTAL PROTEIN 8.6 g/dL (6.3-8.2)
[2022-12-06] MEDS ORDERED: OMNI-PAC300 MG PO (11:38)
== END 2022-12-06 11:59 | disposition home or self-care (01) | DRG 690 ==
LOC: ED 08:46
PROVIDERS: Family Medicine
DX: N39.0 Urinary tract infection, site not specified (principal); I10 Essential (primary) hypertension; E11.9 Type 2 diabetes mellitus without complications; Z95.1 Presence of aortocoronary bypass graft; Z79.84 Long term (current) use of oral hypoglycemic drugs; Z79.4 Long term (current) use of insulin

== ENCOUNTER 2023-01-27 16:13 | Emergency (ER) | payer OTHER ==
[2023-01-27] VITALS (13 sets, daily range): BP systolic 104–149; BP diastolic 57–89
[~2023-01-27] VITALS: Ht 152.4 cm; Wt 55.0 kg
[~2023-01-27 16:13] MED LIST changes: +OMNI-PAC300 MG PO
[2023-01-27 17:36] LABS: BASO% 0.6 % (0-3); EOS% 4.5 % (0-8); HEMATOCRIT 38.4 % (37.0-47.0); HEMOGLOBIN 13.3 g/dl (12.0-16.0); IMMATURE GRANULOCYTES 0.3 % (0.0-5.0); LYMPH% 48.2 % (15-41); MEAN CELL VOLUME 86.5 fL CALC (80.0-100.0); MEAN CORPUSCULAR HGB CONC 34.6 g/dL CAL (32.0-36.0); MONO% 7.8 % (2-13); NEUT# 2.78 thou/uL (2.00-7.15); NEUT% 38.6 % (42-76); RED BLOOD COUNT 4.44 mill/uL (4.20-5.60)
[2023-01-27 17:48] LABS: ALBUMIN 4.5 g/dL (3.2-5.0); ALKALINE PHOSPHATASE 198 u/l (38-126); ANION GAP 17 (6-22 (CALC)); BILIRUBIN, TOTAL 0.6 mg/dL (0.02-1.3); BUN 23 mg/dL (7-17); BUN/CREATININE RATIO 25 (12-20 (CALC)); CARBON DIOXIDE 26 mmol/l (22-30); CHLORIDE 95 mmol/l (95-108); GFR FOR AFR.AMER. > 60 ML/MIN (>=60 (CALC)); GFR OTHER RACES 59 ML/MIN (>=60 (CALC)); POTASSIUM 4.7 mmol/l (3.5-5.1); SGOT/AST 31 u/l (14-36); SODIUM 133 mmol/l (137-146); TOTAL PROTEIN 7.8 g/dL (6.3-8.2)
[2023-01-27 18:56] LABS: AMYLASE 68 u/l (30-110); LIPASE 131 u/l (23-300)
[2023-01-27] MEDS ORDERED: LORTAB 1010 MG PO (20:03)
[2023-01-27] MEDS ORDERED: PREVACID30 M3 PO (20:04)
[2023-01-27] MEDS ORDERED: ONDANSETRON4 MG PO (20:04)
== END 2023-01-27 20:22 | disposition home or self-care (01) | DRG 392 ==
LOC: ED 16:13
PROVIDERS: Emergency Medicine; Family Medicine
DX: R10.9 Unspecified abdominal pain (principal); I10 Essential (primary) hypertension; E11.9 Type 2 diabetes mellitus without complications; Z79.84 Long term (current) use of oral hypoglycemic drugs
CPT/HCPCS: S0164

== ENCOUNTER 2023-02-21 09:02 | Day surgery (SDC) | payer OTHER ==
[~2023-02-21] VITALS: Ht 152.4 cm; Wt 59.0 kg
[~2023-02-21 09:02] MED LIST changes: +ASPIRIN81 MG PO; +CRESTOR20 MG PO; +HYOSCYAMINE0.125 M1 SL; +JARDIANCE10 MG PO; +PREVACID30 M3 PO
[2023-02-21 11:55] VITALS: BP 132/85
== END 2023-02-21 12:12 | disposition home or self-care (01) | DRG 74 ==
LOC: ENDO 09:02 → ORM 11:10 → ENDO 12:12 → ORM 12:15
PROVIDERS: ATTEND Surgery
PROC: 3E0G8GC Introduction of Other Therapeutic Substance into Upper GI, Via Natural or Artificial Opening Endoscopic (ICD-10-PCS; principal; 2023-02-21)
DX: E11.43 Type 2 diabetes mellitus with diabetic autonomic (poly)neuropathy (principal); K31.84 Gastroparesis
CPT/HCPCS: J0585

== ENCOUNTER 2023-03-13 20:11 | Emergency (ER) | payer OTHER ==
[~2023-03-13] VITALS: Ht 152.4 cm; Wt 57.2 kg
[2023-03-13 21:35] LABS: BASO% 0.2 % (0-3); EOS% 2.6 % (0-8); HEMATOCRIT 39.8 % (37.0-47.0); IMMATURE GRANULOCYTES 0.2 % (0.0-5.0); LYMPH% 42.4 % (15-41); MEAN CELL VOLUME 88.4 fL CALC (80.0-100.0); MEAN CORPUSCULAR HGB 28.9 pG CALC (26.0-32.0); MEAN CORPUSCULAR HGB CONC 32.7 g/dL CAL (32.0-36.0); MONO% 8.7 % (2-13); NEUT# 2.85 thou/uL (2.00-7.15); NEUT% 45.9 % (42-76); RED BLOOD COUNT 4.5 mill/uL (4.20-5.60)
[2023-03-13 21:46] LABS: ALBUMIN 3.9 g/dL (3.2-5.0); ALKALINE PHOSPHATASE 116 u/l (38-126); ANION GAP 12 (6-22 (CALC)); BUN 23 mg/dL (7-17); BUN/CREATININE RATIO 25 (12-20 (CALC)); CARBON DIOXIDE 30 mmol/l (22-30); CHLORIDE 101 mmol/l (95-108); CREATININE 0.9 mg/dL (0.5-1.0); GFR FOR AFR.AMER. > 60 ML/MIN (>=60 (CALC)); GFR OTHER RACES > 60 ML/MIN (>=60 (CALC)); POTASSIUM 3.9 mmol/l (3.5-5.1); SGOT/AST 29 u/l (14-36); SODIUM 139 mmol/l (137-146); TOTAL PROTEIN 7.2 g/dL (6.3-8.2)
[2023-03-13 21:47] LABS: BILIRUBIN, TOTAL 0.3 mg/dL (0.02-1.3)
[2023-03-13 21:53] LABS: ACT PARTIAL THROMBO TIME 24.3 SECONDS (20.0-32.5); PROTHROMBIN TIME 9.5 SECONDS (9.0-12.5)
[2023-03-13 22:00] VITALS: BP 163/91
[2023-03-13 22:15] VITALS: BP 151/80
[2023-03-13 22:30] VITALS: BP 152/84
[2023-03-13 22:45] VITALS: BP 150/82
[2023-03-13 22:54] VITALS: BP 150/82
== END 2023-03-13 22:54 | disposition home or self-care (01) | DRG 74 ==
LOC: ED 20:11
PROVIDERS: Emergency Medicine
DX: E11.42 Type 2 diabetes mellitus with diabetic polyneuropathy (principal); I10 Essential (primary) hypertension; E78.5 Hyperlipidemia, unspecified; Z95.1 Presence of aortocoronary bypass graft; Z79.84 Long term (current) use of oral hypoglycemic drugs

== ENCOUNTER 2023-03-23 17:57 | Emergency (ER) | payer OTHER ==
[~2023-03-23] VITALS: Ht 152.4 cm; Wt 54.8 kg
[2023-03-23 18:46] LABS: BASO% 0.1 % (0-3); EOS% 0.5 % (0-8); HEMOGLOBIN 14.6 g/dl (12.0-16.0); IMMATURE GRANULOCYTES 0.1 % (0.0-5.0); LYMPH% 28.2 % (15-41); MEAN CELL VOLUME 88.5 fL CALC (80.0-100.0); MEAN CORPUSCULAR HGB 29.4 pG CALC (26.0-32.0); MEAN CORPUSCULAR HGB CONC 33.2 g/dL CAL (32.0-36.0); MONO% 12.8 % (2-13); NEUT# 4.26 thou/uL (2.00-7.15); NEUT% 58.3 % (42-76); RED BLOOD COUNT 4.97 mill/uL (4.20-5.60); RED CELL DISTRI WIDTH 13.4 % (11.5-15.5); URINE BILIRUBIN - DIPSTICK NEGATIVE (NEGATIVE); URINE BLOOD DIPSTICK LARGE (NEGATIVE); URINE COLOR YELLOW; URINE GLUCOSE - DIPSTICK >=1000 mg/dL (NEGATIVE); URINE KETONE NEGATIVE (NEGATIVE); URINE LEUK ESTERASE NEGATIVE (NEGATIVE); URINE NITRITE - DIPSTICK POSITIVE (Negative); URINE PROTEIN - DIPSTICK 100 mg/dL (NEG-TRACE); URINE SPECIFIC GRAVITY 1.015; URINE UROBILINOGEN - DIPSTICK 0.2 E.U./dL (0.2)
[2023-03-23 18:47] LABS: URINE BACTERIA MODERATE hpf; URINE SQUAMOUS EPITHELIAL CELL FEW EPI/hpf (0-FEW)
[2023-03-23] MEDS ORDERED: NITROFURANTOIN100 M1 PO (18:52)
[2023-03-23 18:57] LABS: CREATININE 1.4 mg/dL (0.5-1.0); POTASSIUM 3.3 mmol/l (3.5-5.1); TOTAL PROTEIN 7.6 g/dL (6.3-8.2)
[2023-03-23 18:58] LABS: BILIRUBIN, TOTAL 0.5 mg/dL (0.02-1.3)
[2023-03-23] MEDS ORDERED: NAPROXEN500 MG PO (20:19)
[2023-03-23] MEDS ORDERED: VALTREX1 GM PO (20:19)
[2023-03-23 20:37] VITALS: BP 114/71
== END 2023-03-23 20:46 | disposition home or self-care (01) | DRG 607 ==
LOC: ED 17:57
PROVIDERS: Nurse Practitioner
DX: L98.8 Other specified disorders of the skin and subcutaneous tissue (principal); N39.0 Urinary tract infection, site not specified; E11.9 Type 2 diabetes mellitus without complications; I10 Essential (primary) hypertension; Z79.4 Long term (current) use of insulin
CPT/HCPCS: Q9967

== ENCOUNTER 2023-04-05 14:00 | Emergency (ER) | payer OTHER ==
[~2023-04-05] VITALS: Ht 152.4 cm; Wt 54.9 kg
[~2023-04-05 14:00] MED LIST changes: +NITROFURANTOIN100 M1 PO; +VALTREX1 GM PO
[2023-04-05 14:56] LABS: BASO% 0.2 % (0-3); EOS% 1.4 % (0-8); HEMATOCRIT 41.4 % (37.0-47.0); HEMOGLOBIN 13.3 g/dl (12.0-16.0); IMMATURE GRANULOCYTES 0.1 % (0.0-5.0); LYMPH% 29.3 % (15-41); MEAN CELL VOLUME 89.2 fL CALC (80.0-100.0); MEAN CORPUSCULAR HGB 28.7 pG CALC (26.0-32.0); MEAN CORPUSCULAR HGB CONC 32.1 g/dL CAL (32.0-36.0); MONO% 6.9 % (2-13); NEUT# 5.35 thou/uL (2.00-7.15); NEUT% 62.1 % (42-76); RED BLOOD COUNT 4.64 mill/uL (4.20-5.60); RED CELL DISTRI WIDTH 13.2 % (11.5-15.5)
[2023-04-05 15:11] LABS: ALBUMIN 3.8 g/dL (3.2-5.0); ALKALINE PHOSPHATASE 137 u/l (38-126); ANION GAP 11 (6-22 (CALC)); BILIRUBIN, TOTAL 0.3 mg/dL (0.02-1.3); CHLORIDE 103 mmol/l (95-108); CREATININE 0.9 mg/dL (0.5-1.0); GFR FOR AFR.AMER. > 60 ML/MIN (>=60 (CALC)); GFR OTHER RACES > 60 ML/MIN (>=60 (CALC)); POTASSIUM 3.6 mmol/l (3.5-5.1); SGOT/AST 30 u/l (14-36); SODIUM 140 mmol/l (137-146); TOTAL PROTEIN 7.2 g/dL (6.3-8.2)
[2023-04-05 15:12] LABS: BUN 20 mg/dL (7-17); BUN/CREATININE RATIO 22 (12-20 (CALC)); CARBON DIOXIDE 30 mmol/l (22-30)
[2023-04-05 17:11] VITALS: BP 102/76
== END 2023-04-05 17:23 | disposition home or self-care (01) | DRG 313 ==
LOC: ED 14:00
PROVIDERS: Family Medicine
DX: R07.9 Chest pain, unspecified (principal); I10 Essential (primary) hypertension; E11.9 Type 2 diabetes mellitus without complications; Z95.1 Presence of aortocoronary bypass graft; Z79.4 Long term (current) use of insulin

== ENCOUNTER 2023-05-12 12:43 | Emergency (ER) | payer OTHER ==
[~2023-05-12] VITALS: Ht 152.4 cm; Wt 58.9 kg
[2023-05-12] VITALS (11 sets, daily range): BP systolic 95–135; BP diastolic 65–86
[2023-05-12] MEDS ORDERED: PROTONIX40 M2 PO (13:01)
[2023-05-12] MEDS ORDERED: INSULIN LISPRO (13:03)
[2023-05-12 13:40] LABS: BASO% 0.6 % (0-3); EOS% 2.1 % (0-8); HEMATOCRIT 42.1 % (37.0-47.0); HEMOGLOBIN 13.7 g/dl (12.0-16.0); IMMATURE GRANULOCYTES 0.4 % (0.0-5.0); LYMPH% 27.5 % (15-41); MEAN CELL VOLUME 87.7 fL CALC (80.0-100.0); MEAN CORPUSCULAR HGB 28.5 pG CALC (26.0-32.0); MEAN CORPUSCULAR HGB CONC 32.5 g/dL CAL (32.0-36.0); MONO% 7.4 % (2-13); NEUT# 4.32 thou/uL (2.00-7.15); RED BLOOD COUNT 4.8 mill/uL (4.20-5.60); RED CELL DISTRI WIDTH 13.9 % (11.5-15.5)
[2023-05-12 13:50] LABS: ALBUMIN 4.1 g/dL (3.2-5.0); CREATININE 1.2 mg/dL (0.5-1.0); TOTAL PROTEIN 8.1 g/dL (6.3-8.2)
[2023-05-12 14:18] LABS: BILIRUBIN, TOTAL 0.8 mg/dL (0.02-1.3); POTASSIUM 4.6 mmol/l (3.5-5.1)
[2023-05-12 15:53] LABS: URINE BILIRUBIN - DIPSTICK NEGATIVE (NEGATIVE); URINE BLOOD DIPSTICK MODERATE (NEGATIVE); URINE COLOR YELLOW; URINE GLUCOSE - DIPSTICK 100 mg/dL (NEGATIVE); URINE KETONE NEGATIVE (NEGATIVE); URINE LEUK ESTERASE TRACE (NEGATIVE); URINE PH 6.5 (4.5-8.0); URINE PROTEIN - DIPSTICK >=300 mg/dL (NEG-TRACE); URINE UROBILINOGEN - DIPSTICK 0.2 E.U./dL (0.2)
[2023-05-12 15:55] LABS: URINE NITRITE - DIPSTICK NEGATIVE (Negative)
[2023-05-12 15:58] LABS: URINE WBC 20-50 WBC/hpf (0-5)
[2023-05-12 15:59] LABS: URINE SQUAMOUS EPITHELIAL CELL FEW EPI/hpf (0-FEW)
[2023-05-12] MEDS ORDERED: OMNI-PAC300 MG PO (16:03)
== END 2023-05-12 16:20 | disposition home or self-care (01) ==
LOC: ED 12:43
PROVIDERS: Family Medicine
DX: N39.0 Urinary tract infection, site not specified (principal); B96.89 Other specified bacterial agents as the cause of diseases classified elsewhere; E11.9 Type 2 diabetes mellitus without complications; Z79.4 Long term (current) use of insulin

== ENCOUNTER 2023-05-30 14:32 | Emergency (ER) | payer OTHER ==
[2023-05-30] VITALS (9 sets, daily range): BP systolic 101–145; BP diastolic 55–79
[~2023-05-30] VITALS: Ht 152.4 cm; Wt 59.6 kg
[~2023-05-30 14:32] MED LIST changes: +INSULIN LISPRO
[2023-05-30 16:22] LABS: BASO% 0.1 % (0-3); EOS% 0.5 % (0-8); HEMATOCRIT 38.3 % (37.0-47.0); HEMOGLOBIN 12.2 g/dl (12.0-16.0); IMMATURE GRANULOCYTES 0.3 % (0.0-5.0); LYMPH% 13.8 % (15-41); MEAN CELL VOLUME 88.2 fL CALC (80.0-100.0); MEAN CORPUSCULAR HGB 28.1 pG CALC (26.0-32.0); MEAN CORPUSCULAR HGB CONC 31.9 g/dL CAL (32.0-36.0); MONO% 8.1 % (2-13); NEUT# 9.01 thou/uL (2.00-7.15); NEUT% 77.2 % (42-76); RED BLOOD COUNT 4.34 mill/uL (4.20-5.60); RED CELL DISTRI WIDTH 13.7 % (11.5-15.5)
[2023-05-30 16:44] LABS: ACT PARTIAL THROMBO TIME 27.6 SECONDS (20.0-32.5); INTERNATIONAL NORMALIZED RATIO 0.9 RATIO (0.7-1.3); PROTHROMBIN TIME 9.3 SECONDS (9.0-12.5)
[2023-05-30 16:46] LABS: ALBUMIN 3.8 g/dL (3.2-5.0); BILIRUBIN, TOTAL 0.9 mg/dL (0.02-1.3); CREATININE 1.3 mg/dL (0.5-1.0); POTASSIUM 3.8 mmol/l (3.5-5.1); TOTAL PROTEIN 8.1 g/dL (6.3-8.2)
[2023-05-30 17:18] LABS: C-REACTIVE PROTEIN 40.7 mg/dL (0-0.9)
[2023-05-30] MEDS ORDERED: BACTRIM DS1 TAB PO (18:16)
[2023-05-30] MEDS ORDERED: KEFLEX500 MG PO (18:16)
[2023-05-30] MEDS ORDERED: DOXYCYCLINE100 MG PO (18:25)
== END 2023-05-30 18:28 | disposition home or self-care (01) | DRG 639 ==
LOC: ED 14:32
PROVIDERS: Family Medicine
DX: E11.69 Type 2 diabetes mellitus with other specified complication (principal); S91.302A Unspecified open wound, left foot, initial encounter; L08.9 Local infection of the skin and subcutaneous tissue, unspecified; E11.40 Type 2 diabetes mellitus with diabetic neuropathy, unspecified; X58.XXXA Exposure to other specified factors, initial encounter; Z79.4 Long term (current) use of insulin; Z20.822 Contact with and (suspected) exposure to COVID-19

== ENCOUNTER 2023-06-18 17:34 | Observation (INO) | payer OTHER ==
[~2023-06-18] VITALS: Ht 152.4 cm; Wt 57.0 kg
[2023-06-18] VITALS (19 sets, daily range): BP systolic 105–164; BP diastolic 65–105
[~2023-06-18 17:34] MED LIST changes: +DOXYCYCLINE100 MG PO
[2023-06-18] MEDS ORDERED: TRESIBA FL100 UNIT/M SC (19:08)
[2023-06-18] MEDS ORDERED: TRULICITY0.75 MG/0. SC (19:09)
[2023-06-18 20:13] LABS: BASO% 0.4 % (0-3); EOS% 1.3 % (0-8); HEMATOCRIT 37.6 % (37.0-47.0); HEMOGLOBIN 12.1 g/dl (12.0-16.0); IMMATURE GRANULOCYTES 0.3 % (0.0-5.0); LYMPH% 32.7 % (15-41); MEAN CELL VOLUME 86.8 fL CALC (80.0-100.0); MEAN CORPUSCULAR HGB 27.9 pG CALC (26.0-32.0); MEAN CORPUSCULAR HGB CONC 32.2 g/dL CAL (32.0-36.0); MONO% 9.4 % (2-13); NEUT# 4.36 thou/uL (2.00-7.15); NEUT% 55.9 % (42-76); RED BLOOD COUNT 4.33 mill/uL (4.20-5.60); RED CELL DISTRI WIDTH 14.1 % (11.5-15.5)
[2023-06-18 20:29] LABS: ALBUMIN 3.9 g/dL (3.2-5.0); ALKALINE PHOSPHATASE 93 u/l (38-126); AMYLASE 84 u/l (30-110); ANION GAP 13 (6-22 (CALC)); BILIRUBIN, TOTAL 0.7 mg/dL (0.02-1.3); BUN 18 mg/dL (7-17); BUN/CREATININE RATIO 12 (12-20 (CALC)); CARBON DIOXIDE 29 mmol/l (22-30); CHLORIDE 98 mmol/l (95-108); CREATININE 1.5 mg/dL (0.5-1.0); GFR FOR AFR.AMER. 44 ML/MIN (>=60 (CALC)); GFR OTHER RACES 37 ML/MIN (>=60 (CALC)); POTASSIUM 3.5 mmol/l (3.5-5.1); SGOT/AST 24 u/l (14-36); SODIUM 136 mmol/l (137-146); TOTAL PROTEIN 7.8 g/dL (6.3-8.2)
[2023-06-18 21:51] LABS: URINE BILIRUBIN - DIPSTICK NEGATIVE (NEGATIVE); URINE COLOR YELLOW; URINE GLUCOSE - DIPSTICK NEGATIVE (NEGATIVE); URINE KETONE Negative (NEGATIVE); URINE PH 5.5 (4.5-8.0); URINE PROTEIN - DIPSTICK 100 mg/dL (NEG-TRACE); URINE UROBILINOGEN - DIPSTICK 0.2 E.U./dL (0.2)
[2023-06-18 21:52] LABS: URINE BLOOD DIPSTICK SMALL (NEGATIVE); URINE LEUK ESTERASE MODERATE (NEGATIVE); URINE NITRITE - DIPSTICK NEGATIVE (Negative)
[2023-06-18 21:55] LABS: URINE SQUAMOUS EPITHELIAL CELL FEW EPI/hpf (0-FEW); URINE WBC 50-100 WBC/hpf (0-5)
[2023-06-19] VITALS (35 sets, daily range): BP systolic 69–131; BP diastolic 43–80
[2023-06-19 07:45] LABS: BASO% 0.4 % (0-3); EOS% 1.1 % (0-8); HEMOGLOBIN 11.1 g/dl (12.0-16.0); IMMATURE GRANULOCYTES 0.3 % (0.0-5.0); LYMPH% 24.6 % (15-41); MEAN CELL VOLUME 88.5 fL CALC (80.0-100.0); MEAN CORPUSCULAR HGB 28.9 pG CALC (26.0-32.0); MEAN CORPUSCULAR HGB CONC 32.6 g/dL CAL (32.0-36.0); MONO% 9.6 % (2-13); NEUT# 4.66 thou/uL (2.00-7.15); RED BLOOD COUNT 3.84 mill/uL (4.20-5.60); RED CELL DISTRI WIDTH 14.1 % (11.5-15.5)
[2023-06-19 08:10] LABS: BILIRUBIN, TOTAL 0.6 mg/dL (0.02-1.3); CREATININE 1.3 mg/dL (0.5-1.0); MAGNESIUM 1.5 mg/dL (1.6-2.3); POTASSIUM 3.8 mmol/l (3.5-5.1)
[2023-06-19 08:11] LABS: ALBUMIN 3.1 g/dL (3.2-5.0); TOTAL PROTEIN 6.2 g/dL (6.3-8.2)
[2023-06-19 08:41] LABS: TSH, 3RD GENERATION 4.18 uIU/mL (0.47 - 4.68)
[2023-06-20] VITALS: BP 117/74
[2023-06-20 04:00] VITALS: BP 117/71
[2023-06-20 05:50] LABS: HEMATOCRIT 31.7 % (37.0-47.0); HEMOGLOBIN 10.5 g/dl (12.0-16.0); MEAN CELL VOLUME 88.1 fL CALC (80.0-100.0); MEAN CORPUSCULAR HGB 29.2 pG CALC (26.0-32.0); MEAN CORPUSCULAR HGB CONC 33.1 g/dL CAL (32.0-36.0); RED BLOOD COUNT 3.6 mill/uL (4.20-5.60); RED CELL DISTRI WIDTH 13.7 % (11.5-15.5)
[2023-06-20 06:24] LABS: BUN 11 mg/dL (7-17); BUN/CREATININE RATIO 12 (12-20 (CALC)); CALCULATED LDLCHOLESTEROL 78 mg/dL (62-129 (CALC)); CARBON DIOXIDE 30 mmol/l (22-30); CHLORIDE 109 mmol/l (95-108); CHOLESTEROL HDL RATIO 6.1 (<4.4 (CALC)); CREATININE 0.9 mg/dL (0.5-1.0); GFR FOR AFR.AMER. > 60 ML/MIN (>=60 (CALC)); GFR OTHER RACES > 60 ML/MIN (>=60 (CALC)); HDL CHOLESTEROL 24 mg/dL (39.0-59.0); POTASSIUM 3.7 mmol/l (3.5-5.1); TOTAL CHOLESTEROL 146 mg/dl (0-199); TOTAL TRIGLYCERIDES 221 mg/dl (0-149); VLDL CHOLESTROL 44 mg/dl (2-49 (CALC))
[2023-06-20 06:26] LABS: ANION GAP 4 (6-22 (CALC)); SODIUM 139 mmol/l (137-146)
[2023-06-20 12:00] VITALS: BP 117/71
[2023-06-20] MEDS ORDERED: KEFLEX500 MG PO (12:02)
[2023-06-20] MEDS ORDERED: ALLERGY RE50 MCG/ACT IN (17:00)
[2023-06-20 18:30] VITALS: BP 111/71
== END 2023-06-20 13:15 | disposition home health service (06) | DRG 313 ==
LOC: ED 17:34 → ED-I 21:20 → ED 21:38 → MS2 21:39 → ICU 06-19 02:39 → MS2 06-19 02:39 → ICU 06-19 02:39
PROVIDERS: Emergency Medicine; ADMIT Student in an Organized Health Care Education/Training Program; ATTEND Student in an Organized Health Care Education/Training Program
DX: R07.9 Chest pain, unspecified (principal); N39.0 Urinary tract infection, site not specified; B96.89 Other specified bacterial agents as the cause of diseases classified elsewhere; N17.9 Acute kidney failure, unspecified; E11.9 Type 2 diabetes mellitus without complications; I25.10 Atherosclerotic heart disease of native coronary artery without angina pectoris; Z86.16 Personal history of COVID-19; Z79.4 Long term (current) use of insulin; Z95.1 Presence of aortocoronary bypass graft; Z87.440 Personal history of urinary (tract) infections; Z20.822 Contact with and (suspected) exposure to COVID-19
CPT/HCPCS: J3475

== ENCOUNTER 2024-05-17 18:58 | Emergency (ER) | payer OTHER ==
[~2024-05-17] VITALS: Ht 152.4 cm; Wt 64.0 kg
[~2024-05-17 18:58] MED LIST changes: +ABILIFY10 MG PO; +ALLERGY RE50 MCG/ACT IN; +ATENOLOL25 MG PO; +LUBIPROSTONE24 MCG PO; +OMNICEF300 MG PO; +TENORMIN25 MG PO; +TRESIBA FL100 UNIT/M SC; +TRULICITY0.75 MG/0. SC
[2024-05-17] MEDS ORDERED: DEXAMETHASONE SOD. PHOSPHATE 10 MG/ML VIAL IV ONE (19:20)
[2024-05-17] MEDS ORDERED: KETOROLAC TROMETHAMINE 30 MG/ML SDV IV ONE (19:20)
[2024-05-17 19:44] LABS: BASO% 0.3 % (0-3); EOS% 1.5 % (0-8); HEMATOCRIT 41.1 % (37.0-47.0); HEMOGLOBIN 13.6 g/dl (12.0-16.0); IMMATURE GRANULOCYTES 0.7 % (0.0-5.0); LYMPH% 34.2 % (15-41); MEAN CELL VOLUME 89.5 fL CALC (80.0-100.0); MEAN CORPUSCULAR HGB 29.6 pG CALC (26.0-32.0); MEAN CORPUSCULAR HGB CONC 33.1 g/dL CAL (32.0-36.0); MONO% 7.6 % (2-13); NEUT# 5.04 thou/uL (2.00-7.15); NEUT% 55.7 % (42-76); RED BLOOD COUNT 4.59 mill/uL (4.20-5.60); RED CELL DISTRI WIDTH 13.7 % (11.5-15.5)
[2024-05-17 19:58] LABS: ALBUMIN 3.7 g/dL (3.2-5.0); ALKALINE PHOSPHATASE 136 u/l (38-126); ANION GAP 7 (6-22 (CALC)); BILIRUBIN, TOTAL 0.7 mg/dL (0.02-1.3); BUN 21 mg/dL (7-17); BUN/CREATININE RATIO 18 (12-20 (CALC)); CARBON DIOXIDE 32 mmol/l (22-30); CHLORIDE 106 mmol/l (95-108); CPK 89 u/l (30-135); CREATININE 1.1 mg/dL (0.5-1.0); ESTIMATED GFR 61 ML/MIN (>=90 (CALC)); MAGNESIUM 1.7 mg/dL (1.6-2.3); POTASSIUM 4.5 mmol/l (3.5-5.1); SGOT/AST 27 u/l (14-36); SODIUM 140 mmol/l (137-146)
[2024-05-17 20:28] LABS: TSH, 3RD GENERATION 3.19 uIU/mL (0.47 - 4.68)
[2024-05-17] MEDS ORDERED: PROMETHAZINE HCL 25 MG/ML AMP IV ONE (21:05)
[2024-05-17 22:24] LABS: URINE BILIRUBIN - DIPSTICK Negative (NEGATIVE); URINE BLOOD DIPSTICK Small (NEGATIVE); URINE GLUCOSE - DIPSTICK Negative (NEGATIVE); URINE KETONE Negative (NEGATIVE); URINE LEUK ESTERASE Negative (NEGATIVE); URINE NITRITE - DIPSTICK Negative (Negative); URINE PROTEIN - DIPSTICK >=300 mg/dL (NEG-TRACE); URINE SPECIFIC GRAVITY 1.025; URINE UROBILINOGEN - DIPSTICK 0.2 E.U./dL (0.2)
[2024-05-17 22:27] LABS: URINE COLOR Yellow
[2024-05-17 22:31] LABS: URINE HYALINE CAST RARE lpf (NONE-RARE); URINE RBC 0-2 RBC/hpf (0-5); URINE SQUAMOUS EPITHELIAL CELL MANY EPI/hpf (0-FEW)
[2024-05-17] MEDS ORDERED: MEDDOSEPAK PO (22:46)
[2024-05-17 23:38] VITALS: BP 132/76
== END 2024-05-17 23:39 | disposition home or self-care (01) ==
LOC: ED 18:58
PROVIDERS: Family Medicine
DX: M25.59 Pain in other specified joint (principal); R07.89 Other chest pain; R10.2 Pelvic and perineal pain; E11.9 Type 2 diabetes mellitus without complications; I10 Essential (primary) hypertension; Z79.4 Long term (current) use of insulin; Z20.822 Contact with and (suspected) exposure to COVID-19

== ENCOUNTER 2024-05-30 10:57 | Emergency (ER) | payer OTHER ==
[~2024-05-30] VITALS: Ht 152.4 cm; Wt 65.8 kg
[2024-05-30] VITALS (8 sets, daily range): BP systolic 73–142; BP diastolic 51–97
[~2024-05-30 10:57] MED LIST changes: +MEDDOSEPAK PO
[2024-05-30] MEDS ORDERED: DEXAMETHASONE SOD. PHOSPHATE 10 MG/ML VIAL IV ONE (11:40)
[2024-05-30] MEDS ORDERED: SODIUM CHLORIDE 0.9% 1,000 ML IV ONE (11:40)
[2024-05-30] MEDS ORDERED: KETOROLAC TROMETHAMINE 30 MG/ML SDV IV ONE (11:40)
[2024-05-30] MEDS ORDERED: ONDANSETRON HCl 4 MG/2 ML SDV IV ONE (11:40)
[2024-05-30 12:14] LABS: BASO% 0.2 % (0-3); EOS% 1.1 % (0-8); HEMATOCRIT 38.3 % (37.0-47.0); HEMOGLOBIN 12.8 g/dl (12.0-16.0); IMMATURE GRANULOCYTES 0.4 % (0.0-5.0); LYMPH% 18.7 % (15-41); MEAN CELL VOLUME 91.6 fL CALC (80.0-100.0); MEAN CORPUSCULAR HGB 30.6 pG CALC (26.0-32.0); MEAN CORPUSCULAR HGB CONC 33.4 g/dL CAL (32.0-36.0); MONO% 9.5 % (2-13); NEUT# 7.98 thou/uL (2.00-7.15); NEUT% 70.1 % (42-76); RED BLOOD COUNT 4.18 mill/uL (4.20-5.60); RED CELL DISTRI WIDTH 13.9 % (11.5-15.5)
[2024-05-30 12:20] LABS: URINE BLOOD DIPSTICK Moderate (NEGATIVE); URINE GLUCOSE - DIPSTICK 100 mg/dL (NEGATIVE); URINE KETONE Negative (NEGATIVE); URINE LEUK ESTERASE Negative (NEGATIVE); URINE NITRITE - DIPSTICK Negative (Negative); URINE PROTEIN - DIPSTICK >=300 mg/dL (NEG-TRACE); URINE SPECIFIC GRAVITY 1.025; URINE UROBILINOGEN - DIPSTICK 0.2 E.U./dL (0.2)
[2024-05-30 12:21] LABS: URINE COLOR Yellow; URINE EPITHELIAL CELLS MODERATE EPI/hpf (0-FEW); URINE MUCUS MODERATE hpf (NONE-FEW)
[2024-05-30 12:36] LABS: ALBUMIN 3.7 g/dL (3.2-5.0); BILIRUBIN, TOTAL 0.8 mg/dL (0.02-1.3); TOTAL PROTEIN 6.7 g/dL (6.3-8.2)
[2024-05-30] MEDS ORDERED: PROTONIX40 MG PO (13:13)
[2024-05-30] MEDS ORDERED: ZOFRAN4 MG/TAB PO (13:13)
[2024-05-30] MEDS ORDERED: MOTRIN800 MG PO (13:13)
== END 2024-05-30 13:55 | disposition home or self-care (01) | DRG 179 ==
LOC: ED 10:57
PROVIDERS: Emergency Medicine
DX: U07.1 COVID-19 (principal); J10.1 Influenza due to other identified influenza virus with other respiratory manifestations; I10 Essential (primary) hypertension; E11.9 Type 2 diabetes mellitus without complications; Z95.1 Presence of aortocoronary bypass graft; Z79.4 Long term (current) use of insulin

== ENCOUNTER 2024-10-20 10:46 | Emergency (ER) | payer OTHER ==
[2024-10-20] VITALS (10 sets, daily range): BP systolic 88–159; BP diastolic 58–87
[~2024-10-20] VITALS: Ht 152.4 cm; Wt 72.5 kg
[~2024-10-20 10:46] MED LIST changes: +MOTRIN800 MG PO; +PROTONIX40 MG PO
[2024-10-20] MEDS ORDERED: BENZONATATE200 MG PO (13:54)
[2024-10-20] MEDS ORDERED: ZPAK PO (13:54)
== END 2024-10-20 14:30 | disposition home or self-care (01) | DRG 203 ==
LOC: ED 10:46
DX: J20.9 Acute bronchitis, unspecified (principal); I10 Essential (primary) hypertension; E11.9 Type 2 diabetes mellitus without complications; I25.10 Atherosclerotic heart disease of native coronary artery without angina pectoris; Z95.1 Presence of aortocoronary bypass graft; E07.9 Disorder of thyroid, unspecified; Z79.4 Long term (current) use of insulin; Z20.822 Contact with and (suspected) exposure to COVID-19

== ENCOUNTER 2024-11-21 06:18 | Day surgery (SDC) | payer OTHER ==
[~2024-11-21] VITALS: Ht 152.4 cm; Wt 74.8 kg
[~2024-11-21 06:18] MED LIST changes: +BASAGLAR K100 UNIT/M SC; +BAYER ASPIRIN E81 MG PO; +BENZONATATE200 MG PO; +HUMALOG100 UNIT/M SC; +LINZESS145 MCG PO; +VENTOLIN HFA108 MCG IN; +ZITHROMAX500 MG PO; +ZPAK PO
[2024-11-21] MEDS ORDERED: FAMOTIDINE 10MG/ML 2ML SDV IV ONE ×2 (06:32→06:53)
[2024-11-21] MEDS ORDERED: SODIUM CHLORIDE 0.9% 1,000 ML IV ONE ×2 (06:32→10:01)
[2024-11-21] MEDS ORDERED: Levofloxacin 500 mg Premix 100 ML IV ONE (06:33)
[2024-11-21] MEDS ORDERED: ACETAMINOPHEN 100 ML IV ONE (08:32)
[2024-11-21] MEDS ORDERED: KETOROLAC TROMETHAMINE 30 MG/ML SDV ONE (08:32)
[2024-11-21] MEDS ORDERED: HYDROmorphone HCL 2 MG/AMP ONE (08:52)
[2024-11-21] MEDS ORDERED: ONDANSETRON HCl 4 MG/2 ML SDV ONE (08:53)
[2024-11-21] MEDS ORDERED: DiphenhydrAMINE HCL 50 MG/ML SDV ONE (09:29)
[2024-11-21] MEDS ORDERED: STERILE WATER FOR IRRIGATION 1,000 ML BTL IR ONE (10:01)
[2024-11-21 10:14] VITALS: BP 149/90
[2024-11-21] MEDS ORDERED: LIDOCAINE HCL 2% 2ML SDV IV ONE (15:07)
[2024-11-21] MEDS ORDERED: PROPOFOL 200 MG/20 ML VIAL IV ONE (15:07)
[2024-11-21] MEDS ORDERED: MIDAZOLAM HCL 2 MG/2 ML VIAL IV ONE (15:07)
== END 2024-11-21 10:22 | disposition home or self-care (01) | DRG 670 ==
LOC: ORM 06:18
PROVIDERS: ATTEND Urology
PROC: 0TBB8ZX Excision of Bladder, Via Natural or Artificial Opening Endoscopic, Diagnostic (ICD-10-PCS; principal; 2024-11-21)
DX: N30.21 Other chronic cystitis with hematuria (principal); E10.42 Type 1 diabetes mellitus with diabetic polyneuropathy; N20.0 Calculus of kidney; D35.02 Benign neoplasm of left adrenal gland; Z87.440 Personal history of urinary (tract) infections; Z79.4 Long term (current) use of insulin
CPT/HCPCS: J0131; J1171; J1200; J1956; J2405